=== PATIENT | female | born 1930 | race Caucasian/White ===

== ENCOUNTER 2016-08-21 03:10 | Inpatient (IN) | payer OTHER ==
[~2016-08-21] VITALS: Ht 165.1 cm; Wt 65.9 kg
[~2016-08-21 03:10] MED LIST: ALEN70TA4 PO; ASPI81TA28 PO; ATOR-22 PO; DILT-113 PO; GLC/500 PO
[2016-08-21] MEDS ORDERED: OPTIRAY 320 IV PRN (03:30)
--- NOTE | 2016-08-21 03:33 | EMERGENCY ROOM VISIT NOTE ---
History Report prepared by Kaylee: Aaliyah Hendricks Under the Supervision of: Dr. Hortensia Torre D.O. First contact with patient: 03:14 Chief Complaint: ABDOMINAL PAIN Stated Complaint: ABDOMINAL PAIN History of Present Illness The patient is an 86 year old female who presents to the Emergency Room with complaints of persistent, worsening right lower quadrant abdominal pain that began last evening. The patient states that she had slight pain when she went to bed last evening, but states that she was suddenly awoken this morning with increased pain and the need to go to the bathroom. She states she is unsure if she has a history of a cholecystectomy, and notes that she believes she has a history of an appendectomy many years ago. The patient reports that her last bowel movement was yesterday. She states that she drinks a lot of coffee and tea. The patient denies any history of diverticulitis. Per EMS the patient was given 50 mcg of Fentanyl prior to arrival and the patient states that it provided slight relief of her symptoms. Source of History: patient, EMS Onset: last evening Position: abdomen (RLQ) Timing: worsening, other (persistent) Modifying Factors (Relieving): narcotics (Fentanyl) Review of Systems See HPI for pertinent positives & negatives. A total of 10 systems reviewed and were otherwise negative. Past Medical & Surgical Medical Problems: (1) Aortic stenosis (2) Diabetes mellitus type 2 in nonobese (3) Dyslipidemia (4) History of patellar fracture (5) HTN (hypertension) (6) PSVT (paroxysmal supraventricular tachycardia) Surgical Problems: (1) H/O cataract removal with insertion of prosthetic lens (2) History of hysterectomy Family History Noncontributory secondary to age Social History Smoking Status: Former Smoker Drug Use: none Marital Status: single Housing Status: lives with family Occupation Status: unemployed Current/Historical Medications Scheduled Alendronate Sodium (Fosamax), 1 TAB PO WK Aspirin (Aspirin Ec), 81 MG PO DAILY Atorvastatin (Lipitor), 20 MG PO DAILY Diltiazem Hcl Ext Rel (Tiazac), 180 MG PO DAILY Allergies Coded Allergies: No Known Allergies (Unverified , 09/07/15) Physical Exam Vital Signs Date Time Temp Pulse Resp B/P Pulse Ox O2 Delivery O2 Flow Rate FiO2 08/21/16 05:30 89 16 97 Room Air 08/21/16 05:00 90 19 138/68 95 Room Air 08/21/16 04:30 83 20 141/67 97 Room Air 08/21/16 04:21 83 24 152/66 99 Room Air 08/21/16 03:30 36.7 86 17 164/79 98 Room Air 08/21/16 03:19 82 Physical Exam HEENT: Head - normocephalic and atraumatic Pupils are equal, round, and reactive to light. Extraocular eye muscles are intact, and sclera are anicteric. Nose - moist nasal mucosa without discharge. Mouth - dry buccal mucosa. Oropharynx is nonerythematous and there is no tonsillar exudate or edema noted. Neck: Supple; no JVD, nuchal rigidity, cervical lymphadenopathy, or auscultated bruits. Heart: Regular rate and rhythm. There is a normal S1 and S2 with no murmurs, clicks, or gallops appreciated. Lungs: Clear to auscultation bilaterally with no wheezes, rales, or rhonchi. Abdomen: Exquisitely tender in the right lower quadrant of the abdomen with rebound and guarding, consistent with an acute abdomen. Soft, nondistended, with good bowel sounds. There are no palpable pulsatile masses or hepatosplenomegaly. Extremities: No evidence of cyanosis, clubbing, or edema. There are easily palpable peripheral pulses. Skin: warm and dry with good turgor and no rashes. Medical Decision & Procedures ER Provider Diagnostic Interpretation: CT results as stated below per my review and radiologist interpretation: CT Abdomen and Pelvis: Impression: Marked wall thickening of the cecum with minimal adjacent stranding. There is an additional large diverticulum. Findings may represent focal colitis or cecal diverticulitis however malignancy is raised. Gas seen within the central liver which is favored to represent pneumobilia. Additional findings: Fibrosis with honeycombing seen within the lung bases. Gallstones without CT evidence of acute cholecystitis. The spleen, pancreas, and adrenal glands are unremarkable. The kidneys, ureters and urinary bladder are unremarkable. The uterus is surgically absent. No adnexal masses. The appendix is not visualized. No acute osseous abnormality. Radiologist: Archie Membreno MD Study read at 0796 and initial results transmitted at 3195. Laboratory Results Test 08/21/16 03:30 08/21/16 03:43 08/21/16 04:20 Immature Granulocyte % (Auto) 0.2 % White Blood Count 14.17 K/uL (4.8-10.8) Red Blood Count 3.81 M/uL (4.2-5.4) Hemoglobin 12.8 g/dL (12.0-16.0) Hematocrit 37.0 % (37-47) Mean Corpuscular Volume 97.1 fL (80-100) Mean Corpuscular Hemoglobin 33.6 pg (25-34) Mean Corpuscular Hemoglobin Concent 34.6 g/dl (32-36) Platelet Count 288 K/uL (130-400) Mean Platelet Volume 9.9 fL (7.4-10.4) Neutrophils (%) (Auto) 88.2 % Lymphocytes (%) (Auto) 5.6 % Monocytes (%) (Auto) 5.9 % Eosinophils (%) (Auto) 0.0 % Basophils (%) (Auto) 0.1 % Neutrophils # (Auto) 12.50 K/uL (1.4-6.5) Lymphocytes # (Auto) 0.79 K/uL (1.2-3.4) Monocytes # (Auto) 0.84 K/uL (0.11-0.59) Eosinophils # (Auto) 0.00 K/uL (0-0.5) Basophils # (Auto) 0.01 K/uL (0-0.2) Immature Granulocyte # (Auto) 0.03 K/uL (0.00-0.02) Prothrombin Time 10.2 SECONDS (9.0-12.0) Prothromb Time International Ratio 1.0 (0.9-1.1) Total Bilirubin 0.7 mg/dl (0.2-1) Aspartate Amino Transf (AST/SGOT) 15 U/L (15-37) Alanine Aminotransferase (ALT/SGPT) 33 U/L (12-78) Alkaline Phosphatase 83 U/L (45-117) Total Protein 7.8 gm/dl (6.4-8.2) Albumin 3.9 gm/dl (3.4-5.0) Globulin 3.9 gm/dl (2.5-4.0) Albumin/Globulin Ratio 1.0 (0.9-2) Bedside Hemoglobin 12.6 g/dl (12.0-16.0) Bedside Hematocrit 37 % (37-47) Bedside Sodium 143 mEq/L (135-144) Bedside Potassium 4.0 mEq/L (3.3-5.0) Bedside Chloride 104 mEq/L (101-112) Bedside Total CO2 21 mEq/l (24-31) Bedside Blood Urea Nitrogen 17 mg/dl (7-18) Bedside Creatinine 0.5 mg/dl (0.6-1.3) Bedside Glucose (other) 171 mg/dl (70-99) Bedside Ionized Calcium (Kaitlin) 1.15 mmol/l (1.12-1.32) Urine Color YELLOW Urine Appearance CLEAR (CLEAR) Urine pH 7.0 (4.5-7.5) Urine Specific [place] 1.041 (1.000-1.030) Urine Protein NEG (NEG) Urine Glucose (UA) 1+ (NEG) Urine Ketones TRACE (NEG) Urine Occult Blood NEG (NEG) Urine Nitrite NEG (NEG) Urine Bilirubin NEG (NEG) Urine Urobilinogen NEG (NEG) Urine Leukocyte Esterase NEG (NEG) Laboratory results per my review. Medications Administered Medications (Trade) Dose Ordered Sig/Manuel Route Start Time Stop Time Status Last Admin Dose Admin Fentanyl Citrate (Fentanyl Inj) 50 mcg NOW STAT IV 08/21/16 04:34 08/21/16 04:35 DC 08/21/16 04:42 50 MCG Piperacillin Sod/ Tazobactam Sod (Zosyn Iv) 3.375 gm NOW STAT IV 08/21/16 05:14 08/21/16 05:17 DC 08/21/16 06:30 3.375 GM Procedure The patient was treated with Fentanyl Inj 50 mcg IV, Sodium Chloride 1000 ml @ 250 mls/hr IV, Zosyn IV 3.375 gm IV. ED Course 0317: Past medical records reviewed. The patient was evaluated in room A3. A complete history and physical exam was performed. An IV lock was initiated and labs are drawn as above. 0434: Per nursing staff, the patient's pain is increasing. Ordered Fentanyl Inj 50 mcg IV. 0444: Ordered Sodium Chloride 1000 ml @ 250 mls/hr IV. 0514: Ordered Zosyn IV 3.375 gm IV. 0518: I reevaluated the patient and she is resting. I discussed all the exam findings with her and I discussed the treatment plan. She verbalized complete understanding and agreement. She will be evaluated for further treatment. 0520: I discussed the patients case with Kiel Kuo. He is going to evaluate the patient for further treatment. Medical Decision The patient is an 86 year old female who presents to the ED with right lower quadrant abdominal pain. Differential diagnosis includes appendicitis, perforated diverticulitis, pyelonephritis, cystitis, small bowel obstruction, perforated viscus, ureteral colic. Lab interpretation: White count 14.1, stable H&H, 88% neutrophils, normal renal function, glucose 171, LFTs are normal, urinalysis reveals trace ketones The patient did have mild leukocytosis. Her pain was sudden in onset. Physical exam was consistent with an episode of acute diverticulitis. The patient was treated with IV Zosyn. She was hemodynamically stable. Consults Time Called: [phone] Consulting Physician: Kiel Kuo Returned Call: [phone] I discussed the patients case with Kiel Kuo. He is going to evaluate the patient for further treatment. Impression Primary Impression: Cecal diverticulitis Scribe Attestation The scribe's documentation has been prepared under my direction and personally reviewed by me in its entirety. I confirm that the note above accurately reflects all work, treatment, procedures, and medical decision making performed by me. Departure Information Dispostion Being Evaluated By Hospitalist Referrals SherwoodBhupendra (PCP)
[2016-08-21 03:49] LABS: BASO % 0.1 %; BASO ABS # 0.01 K/uL (0-0.2); COMPLETE YES; IG% 0.2 %; LYMPH % 5.6 %; LYMPH ABS # 0.79 K/uL (1.2-3.4); MEAN CELL VOLUME 97.1 fL (80-100); MEAN CORPUSCULAR HEMOGLOBIN 33.6 pg (25-34); MEAN CORPUSCULAR HGB CONC 34.6 g/dl (32-36); MEAN PLATELET VOLUME 9.9 fL (7.4-10.4); MONO % 5.9 %; NEUT % 88.2 %; PLATELET COUNT 288 K/uL (130-400); RED BLOOD COUNT 3.81 M/uL (4.2-5.4); WHITE BLOOD COUNT 14.17 K/uL (4.8-10.8)
[2016-08-21 03:57] LABS: ISTAT CREATININE 0.5 mg/dl (0.6-1.3); ISTAT HEMOGLOBIN 12.6 g/dl (12.0-16.0); ISTAT IONIZED CALCIUM 1.15 mmol/l (1.12-1.32)
[2016-08-21 04:16] LABS: BUN/CREATININE RATIO 21.9 (10-20); CALCIUM 9.4 mg/dl (8.5-10.1); CREATININE 0.8 mg/dl (0.60-1.20)
[2016-08-21 04:29] LABS: URINE APPEARANCE CLEAR (CLEAR); URINE BILIRUBIN NEG (NEG); URINE COLOR YELLOW; URINE NITRITE NEG (NEG); URINE SPECIFIC GRAVITY 1.041 (1.000-1.030); UROBILINOGEN NEG (NEG)
[2016-08-21] MEDS ORDERED: FENTANYL CITRATE INJ 50 MCG/1 ML 2 ML VIAL IV STA (04:34)
[2016-08-21 04:38] LABS: MANUAL MICROSCOPIC REQUIRED? NO; REVIEW REQ? NO
[2016-08-21] MEDS ORDERED: SODIUM CHLORIDE 0.9% 1000ML 1,000 ML IV STA (04:44)
[2016-08-21] MEDS ORDERED: PIPERACILLIN/TAZOBACTAM 3.375 GM/100ML D5W IV STA (05:14)
[2016-08-21] MEDS ORDERED: SODIUM CHLORIDE 0.45% 1000ML 1,000 ML IV ONE (05:45)
[2016-08-21] MEDS ORDERED: ACETAMINOPHEN 325 MG TAB PO PRN (06:15)
[2016-08-21] MEDS ORDERED: KETOROLAC TROMETHAMINE 15 MG/ML VIAL IV. PRN (06:15)
[2016-08-21] MEDS ORDERED: DEXTROSE 50% 50 ML SYR IV PRN (06:15)
[2016-08-21] MEDS ORDERED: MoRPHine SULFATE 2 MG/ML CARP IV PRN (06:15)
[2016-08-21] MEDS ORDERED: GLUCOSE 40% GEL 15 GM TUBE PO PRN (06:15)
[2016-08-21] MEDS ORDERED: ONDANSETRON INJ 2 MG/ML 2 ML VIAL IV PRN (06:15)
[2016-08-21] MEDS ORDERED: GLUCAGON FOR INJ 1 MG VIAL SQ PRN (06:15)
[2016-08-21] MEDS ORDERED: TRAMADOL HCL 50 MG TAB PO PRN (06:15)
[2016-08-21] MEDS ORDERED: GLUCOSE 10 TABS/TUBE PO PRN (06:15)
[2016-08-21 06:51] LABS: PROTHROMBIN TIME (PATIENT) 10.2 SECONDS (9.0-12.0)
--- NOTE | 2016-08-21 07:14 | HISTORY & PHYSICAL EXAMINATION ---
DATE OF ADMISSION: 08/21/2016 PRIMARY CARE DOCTOR: Dr. Noelle Mullins obtained from px and records. CHIEF COMPLAINT: Right-sided abdominal pain. HISTORY OF PRESENT ILLNESS: Medical history significant for hypertension, DM2, aortic stenosis, PSVT, hyperlipidemia, past tobacco abuse. Recent confinement in August 2015 for fall right ankle fracture, Few days history of loose stools, non-bloody. No recent antibiotics. Patient saw her PCP yesterday. Told to hold metformin temporarily. Last night, patient had mild achy right-sided abdominal pain, which woke her up this morning. No nausea, no vomiting. No fever, no chills. No unusual weight loss. At the Emergency Room CAT scan initial read showed marked wall thickening of the cecum with minimal adjacent stranding, focal colitis or cecal diverticulitis. Patient received Zosyn in the ER. MEDICAL HISTORY: As above. No previous endoscopies. SURGERIES: She has had a hysterectomy, cataract surgery. HOME MEDICATIONS: Include aspirin, Fosamax, Lipitor, Tiazac. ALLERGIES: No known drug allergies. FAMILY HISTORY: Diabetes and heart disease. PERSONAL AND SOCIAL HISTORY: Past tobacco, no chronic intake of alcoholic beverages. Retired store employee. REVIEW OF SYSTEMS: As per HPI, all other ROS negative. PHYSICAL EXAMINATION: VITAL SIGNS: Blood pressure was noted to be 167/79, later 150/60; pulse rate 80, RR 20, temperature 37, sats 98 on room air. GENERAL: Noted to be slightly uncomfortable, no respiratory distress. SKIN: Normal color. HEENT: [place] palpebral conjunctivae. Dry mucosa. NECK: No JVD. Supple. CHEST: Clear to auscultation. HEART: Systolic murmur. ABDOMEN: Right lower quadrant tenderness. EXTREMITIES: No edema. no tenderness NEUROLOGIC: No gross focality. LABS: Hemoglobin was noted to be 12.8, hematocrit 37, white cells 14, platelets 288. Sodium 140, potassium 4, chloride 108, CO2 of 24, BUN 18, creatinine 0.8, glucose at 166. CT abdomen and pelvis as above UA Ketones ASSESSMENT: 1. Right-sided abdominal pain questionable cecal diverticulitis on CT initial read. 2. Hypertension, slightly elevated secondary to discomfort. 3. DM2, well controlled as of recent outpx A1c Metformin recently held due to diarrhea sx 4. Past tobacco abuse. 5. History of paroxysmal supraventricular tachycardia, as per records. PLAN: GMF clear liquids, analgesia IV Ceftriaxone, Flagyl ff official CT results GI consult RE right-sided abdominal pain, abnormal CT. ISS BG goal 140-180 DVT prophylaxis with Lovenox subQ. Full code. MTDD
--- NOTE | 2016-08-21 07:32 | DIAGNOSTIC IMAGING REPORT ---
CT OF THE ABDOMEN AND PELVIS WITH CONTRAST CLINICAL HISTORY: Right lower quadrant pain. Acute abdomen. COMPARISON STUDY: None. TECHNIQUE: Following IV administration of 93 mL of Optiray-320, axial images of the abdomen and pelvis were obtained from the lung bases to the proximal femurs. Images were reviewed in the axial, sagittal, and coronal planes. IV contrast was administered without complication. CT DOSE: 449.10 mGy.cm FINDINGS: Visualized portions of lower chest demonstrate extensive coronary artery calcification. There are subpleural reticulation with traction bronchiectasis and possible early honeycombing. A small amount of gas along the falciform ligament may reflect pneumobilia. The liver, spleen, adrenal glands, kidneys and pancreas are unremarkable. There is no evidence for a bowel obstruction. There is moderate circumferential wall thickening of the cecum with moderate adjacent infiltration. There is a 3.3 cm suspected diverticulum of the anterior wall of the cecum. The appendix is not visualized. No abscess is identified. There is no lymphadenopathy. There are gallstones within the gallbladder. There is equivocal trace free air overlying the right hepatic lobe. IMPRESSION: 1. Moderate circumferential wall thickening of the cecum with adjacent infiltration. Suspected 3.3 cm diverticulum of the anterior wall of the cecum. Cecal diverticulitis is favored although a nonspecific colitis could appear similar. In addition, a cecal malignancy is within the differential. Short-term imaging follow-up or a colonoscopy once the patient's symptoms resolve is recommended to ensure resolution. 2. Suspected minimal pneumobilia. Equivocal trace pneumoperitoneum. Electronically signed by: Swapnil Shaw M.D. 08/21/2016 7:30 AM Dictated Date/Time: 08/21/2016 7:11 AM
[2016-08-21 07:52] VITALS: BP 135/73; PULSE 91; TEMP 36.8; O2SAT 98
[2016-08-21] MEDS: INSULIN ASPART 100 UNITS/ML 3 ML PEN SC SCH ×4 (08:00→23:50)
[2016-08-21] MEDS: METRONIDAZOLE / NSS 500 MG in PREMIXED NSS 100 ML IV SCH ×3 (09:13→23:17)
[2016-08-21] MEDS: ENOXAPARIN 30 MG/0.3 ML SYR SQ SCH (09:15)
[2016-08-21] MEDS: CEFTRIAXONE SOD INJ 1 GM in DEXTROSE 5% ADD-VANTAGE 50ML 50 ML IV SCH (10:41)
[2016-08-21] MEDS: ATORVASTATIN 20 MG TAB PO SCH (11:58)
[2016-08-21] MEDS: ASPIRIN 81 MG ECTAB PO SCH (11:58)
[2016-08-21] MEDS: DILTIAZEM HCL (TIAzac) 180 MG CAPCR PO SCH (11:59)
[2016-08-21] MEDS ORDERED: NURSING DECISION MEDICATION ORDER SCH (12:00)
--- NOTE | 2016-08-21 14:30 | Gastrointestinal Consultation ---
Gastrointestinal Consultation Date of Consultation: August 21, 2016 Attending Physician: Melonie Webber Consulting Physician: Edenilson Forte Reason for Consultation: Abd pain History of Present Illness Patient is a 86 year old female w PMHx of HTN, DM II, aortic stenosis, PSVT, hyperlipidemia, hx of tobacco abuse who presented to ED w c/o R sided abd pain. She reports 2 days ago had loose stools but had since resolved. Denies any fever , chills, n/v. Denies any recent antibx use. Labs showed leukocytosis w WBC 14K , H/H stable, CMP unremarkable including normal LFTs. She had CT abd/pelvis which showed possible pneumobilia near falciform ligament, cecal thickening ? diverticulitis or focal colitis. She denies any heavy lifting or straineous activity recently. She had been admitted, started on Ceftriaxone, Flagyl antibx. This AM had CL breakfast which showed tolerated. Still c/o some RUQ abd pain but improved. Past Medical/Surgical History Medical Problems: (1) Cecal diverticulitis Status: Acute Past Medical History: See HPI above Past Surgical History: Hysterectomy Cataract Surgery Family History Noncontributory secondary to age DM Heart disease Social History Smoking Status: Former Smoker Alcohol Use: none Drug Use: none Marital Status: single Housing Status: lives with family Occupation Status: unemployed Allergies Coded Allergies: No Known Allergies (Unverified , 09/07/15) Current Medications Home Meds and Scripts Medications Dose Route/Sig Max Daily Dose Days Date Category Fosamax (Alendronate Sodium) 70 Mg Tab 1 Tab PO WK 28 09/07/15 Reported Aspirin Ec (Aspirin) 81 Mg Tab 81 Mg PO DAILY 09/07/15 Reported Tiazac (Diltiazem HCl) 180 Mg Capcr 180 Mg PO DAILY 09/07/15 Reported Lipitor (Atorvastatin Calcium) 20 Mg Tab 20 Mg PO DAILY 09/07/15 Reported Review of Systems Constitutional: No chills, No fever Respiratory: No cough, No shortness of breath Cardiac: No chest pain, No edema Abdomen: + pain (R sided), No diarrhea, No nausea, No vomiting Physical Exam Date Time Temp Pulse Resp B/P Pulse Ox O2 Delivery O2 Flow Rate FiO2 08/21/16 07:52 36.8 91 15 135/73 98 08/21/16 07:00 96 18 141/71 98 Room Air 08/21/16 06:30 94 20 141/97 98 Room Air 08/21/16 06:00 89 24 95 Room Air 08/21/16 05:49 85 08/21/16 05:30 89 16 97 Room Air 08/21/16 05:00 90 19 138/68 95 Room Air 08/21/16 04:30 83 20 141/67 97 Room Air 08/21/16 04:21 83 24 152/66 99 Room Air 08/21/16 03:30 36.7 86 17 164/79 98 Room Air 08/21/16 03:19 82 General Appearance: WD/WN, no apparent distress Eyes: normal inspection, PERRL, EOMI Neck: supple, thyroid normal, trachea midline Respiratory/Chest: normal breath sounds, no respiratory distress, no accessory muscle use Cardiovascular: regular rate, rhythm, no gallop, no murmur Abdomen: soft, + tenderness (Tender to palpation diffusely except on LUQ and periumbilical areas ) Extremities: normal inspection, no pedal edema, no calf tenderness Neurologic/Psych: alert, normal mood/affect, oriented x 3 Skin: normal color, no jaundice, no rash Laboratory Results Last 24 Hours Test 08/21/16 03:30 08/21/16 03:43 08/21/16 04:20 08/21/16 08:50 White Blood Count 14.17 K/uL Red Blood Count 3.81 M/uL Hemoglobin 12.8 g/dL Hematocrit 37.0 % Mean Corpuscular Volume 97.1 fL Mean Corpuscular Hemoglobin 33.6 pg Mean Corpuscular Hemoglobin Concent 34.6 g/dl Platelet Count 288 K/uL Mean Platelet Volume 9.9 fL Neutrophils (%) (Auto) 88.2 % Lymphocytes (%) (Auto) 5.6 % Monocytes (%) (Auto) 5.9 % Eosinophils (%) (Auto) 0.0 % Basophils (%) (Auto) 0.1 % Neutrophils # (Auto) 12.50 K/uL Lymphocytes # (Auto) 0.79 K/uL Monocytes # (Auto) 0.84 K/uL Eosinophils # (Auto) 0.00 K/uL Basophils # (Auto) 0.01 K/uL RDW Standard Deviation 47.0 fL RDW Coefficient of Variation 13.3 % Immature Granulocyte % (Auto) 0.2 % Immature Granulocyte # (Auto) 0.03 K/uL Prothrombin Time 10.2 SECONDS Prothromb Time International Ratio 1.0 Sodium Level 143 mmol/L Potassium Level 4.0 mmol/L Chloride Level 108 mmol/L Carbon Dioxide Level 24 mmol/L Anion Gap 11.0 mmol/L 22.0 mmol/L Blood Urea Nitrogen 18 mg/dl Creatinine 0.80 mg/dl Est Creatinine Clear Calc Drug Dose 43.7 ml/min Estimated GFR () 76.3 Estimated GFR (Non- 65.8 BUN/Creatinine Ratio 21.9 Random Glucose 166 mg/dl Calcium Level 9.4 mg/dl Magnesium Level 2.0 mg/dl Total Bilirubin 0.7 mg/dl Aspartate Amino Transf (AST/SGOT) 15 U/L Alanine Aminotransferase (ALT/SGPT) 33 U/L Alkaline Phosphatase 83 U/L Total Protein 7.8 gm/dl Albumin 3.9 gm/dl Globulin 3.9 gm/dl Albumin/Globulin Ratio 1.0 Bedside Hemoglobin 12.6 g/dl Bedside Hematocrit 37 % Bedside Sodium 143 mEq/L Bedside Potassium 4.0 mEq/L Bedside Chloride 104 mEq/L Bedside Total CO2 21 mEq/l Bedside Blood Urea Nitrogen 17 mg/dl Bedside Creatinine 0.5 mg/dl Bedside Glucose (other) 171 mg/dl Bedside Ionized Calcium (Kaitlin) 1.15 mmol/l Urine Color YELLOW Urine Appearance CLEAR Urine pH 7.0 Urine Specific [place] 1.041 Urine Protein NEG Urine Glucose (UA) 1+ Urine Ketones TRACE Urine Occult Blood NEG Urine Nitrite NEG Urine Bilirubin NEG Urine Urobilinogen NEG Urine Leukocyte Esterase NEG Bedside Glucose 180 mg/dl Test 08/21/16 11:56 Bedside Glucose 143 mg/dl Impression Patient is a 86 year old female admitted w abd pain. CT scan showed ? tear falciform ligament w pneumobilia and possible cecal focal colitis vs. diverticulitis. Plan - Surgery consult; keep NPO till evaluated by Surgery - Continue current antibx - Will need outpt colonoscopy in 4 week's time. I have seen, examined, and agree with the plan as outlined by CASTILLO Cordero -cecal diverticulitis with small spontaneous free air -doing well clinically -cont abx -pending uneventful course, plan for colonoscopy in about 4-6 wks to ensure no malignancy -surgery consult
[2016-08-21 14:59] VITALS: BP 114/66; PULSE 90; TEMP 36.6; O2SAT 95
[2016-08-21 16:02] VITALS: Ht 165.1 cm; Wt 65.9 kg
[2016-08-21] MEDS: SODIUM CHLORIDE 0.9% 1000ML 1,000 ML IV SCH (20:26)
[2016-08-21 22:57] VITALS: BP 113/63; PULSE 78; TEMP 36.8; O2SAT 95
--- NOTE | 2016-08-22 00:52 | SURGICAL CONSULTATION ---
DATE OF CONSULTATION: 08/21/2016 I have been asked by Dr. Forte to see this 86-year-old female who presented to the Emergency Room with abdominal pain that had been going on for 4-5 days. The pain began gradually but increased in intensity. It was located mostly on the right side of her abdomen, in the lower quadrant more than the upper quadrant. It was not associated with vomiting. She had some nausea. She did not have a fever. She has been moving her bowels. There is no melena or hematochezia. She denies dysuria and hematuria. She underwent a CT scan of the abdomen and pelvis that showed moderate circumferential wall thickening of the cecum with adjacent infiltration. There was a suspected 3.3 cm diverticulum on the anterior wall of the cecum and the favored diagnosis from my CT criteria was cecal diverticulitis. The appendix was not visualized. Suspected minimal pneumobilia and equivocal trace pneumoperitoneum. At the present time, she denies any abdominal pain. PAST MEDICAL HISTORY: Includes hypertension, diabetes mellitus type 2, aortic stenosis, paroxysmal supraventricular tachycardia, hyperlipidemia. PAST SURGICAL HISTORY: KODY-BSO. Her appendix was removed during that procedure. She has had bilateral cataracts and a T\T\A. MEDICATIONS: Fosamax, Lipitor, Tiazac, and aspirin. ALLERGIES: None. PHYSICAL EXAMINATION: GENERAL: Reveals a well-developed, well-nourished female who appears resting comfortably and in no acute distress. VITAL SIGNS: Blood pressure 114/66, heart rate 90, respirations 16, temperature 36.6, pulse oximetry is 95% on room air. HEENT: Reveals the sclerae to be anicteric. Mucous membranes are moist. NECK: Supple, with no adenopathy. BACK: Has no CVA tenderness. LUNGS: Clear. HEART: Regular. ABDOMEN: Has normoactive bowel sounds. It is soft, nondistended with tenderness on the right side, particularly in the right lower quadrant with fullness but no particular mass. EXTREMITIES: Reveal no edema. LABORATORY DATA: WBC 14.17, H\T\H 12.8 and 37.0, platelet count 288,000. Sodium 143, potassium 4.0, chloride 104, CO2 of 21, BUN 17, creatinine 0.5, glucose 171, INR 1.0. CT as per HPI. ASSESSMENT AND PLAN: This appears to be either cecal diverticulitis or possibly a colitis. She does not have an appendix. There is minimal free air but I doubt perforation. She has no evidence of diffuse peritonitis. Her pain is decreasing. I agree with conservative management with antibiotics. If do not think surgical intervention is necessary at this time. Thank you for allowing me to see this patient and participate in her care.
[2016-08-22] MEDS: SODIUM CHLORIDE 0.9% 1000ML 1,000 ML IV SCH ×2 (04:27→14:23)
[2016-08-22] MEDS: INSULIN ASPART 100 UNITS/ML 3 ML PEN SC SCH ×3 (05:54→18:00)
[2016-08-22 06:08] LABS: HEMATOCRIT 35.8 % (37-47); MEAN CELL VOLUME 98.6 fL (80-100); MEAN CORPUSCULAR HEMOGLOBIN 32.5 pg (25-34); MEAN PLATELET VOLUME 9.8 fL (7.4-10.4); PLATELET COUNT 234 K/uL (130-400); RED BLOOD COUNT 3.63 M/uL (4.2-5.4); WHITE BLOOD COUNT 14.27 K/uL (4.8-10.8)
[2016-08-22 06:44] LABS: BUN/CREATININE RATIO 21.2 (10-20); CALCIUM 8.2 mg/dl (8.5-10.1); CREATININE 0.5 mg/dl (0.60-1.20); POTASSIUM 3.4 mmol/L (3.5-5.1)
[2016-08-22 07:47] VITALS: BP 128/70; PULSE 88; TEMP 36.7; O2SAT 97
[2016-08-22 08:03] VITALS: O2SAT 97
--- NOTE | 2016-08-22 09:06 | Gastroenterology Progress Note ---
Progress Note Date of Service: August 22, 2016 Subjective Pt evaluation today including: conversation w/ patient, physical exam The patient presented yesterday with evidence of abdominal pain and probable cecal diverticulitis with evidence of a microperforation. She notes that her abdominal pain is somewhat better today. Review of Systems Constitutional: No fatigue, No fever, No sweats Respiratory: No cough, No dyspnea at rest, No wheezing Cardiac: No PND, No chest pain, No palpitations Medications Current Inpatient Medications Medications (Trade) Dose Ordered Sig/Manuel Route Start Time Stop Time Status Last Admin Dose Admin Ioversol (Optiray 320) 100 ml UD PRN IV 08/21/16 03:30 08/25/16 03:29 Enoxaparin Sodium (Lovenox Inj) 30 mg DAILY SQ 08/21/16 09:00 09/20/16 08:59 Future Hold 08/21/16 09:15 30 MG Acetaminophen (Tylenol Tab) 650 mg Q4H PRN PO 08/21/16 06:15 09/20/16 06:14 Glucose (Glucose 40% Gel) 15-30 GRAMS 15 GRAMS... UD PRN PO 08/21/16 06:15 09/20/16 06:14 Glucose (Glucose Chew Tab) 4-8 Tablets 4 Tabl... UD PRN PO 08/21/16 06:15 09/20/16 06:14 Dextrose (Dextrose 50% 50ML Syringe) 25-50ML OF 50% DW IV FOR... UD PRN IV 08/21/16 06:15 09/20/16 06:14 Glucagon 1 mg 1 mg UD PRN SQ 08/21/16 06:15 09/20/16 06:14 Ceftriaxone Sodium 1 gm/ Dextrose 50 ml @ 100 mls/hr DAILY@0800 IV 08/21/16 08:00 08/31/16 07:59 08/21/16 10:41 100 MLS/HR Metronidazole/Prmx (Flagyl / Nss/ Premixed Nss) 100 ml @ 100 mls/hr Q8H IV 08/21/16 08:00 08/31/16 07:59 08/21/16 23:17 100 MLS/HR Ondansetron HCl (Zofran Inj) 4 mg Q6H PRN IV 08/21/16 06:15 09/20/16 06:14 Tramadol HCl (Ultram Tab) 25 mg Q6H PRN PO 08/21/16 06:15 09/20/16 06:14 08/21/16 20:35 25 MG Ketorolac Tromethamine (Toradol Inj) 15 mg Q6H PRN IV. 08/21/16 06:15 08/26/16 06:14 Morphine Sulfate (MoRPHine SULFATE INJ) 2 mg Q3H PRN IV 08/21/16 06:15 09/04/16 06:14 Aspirin (Ecotrin Tab) 81 mg DAILY PO 08/21/16 09:00 09/20/16 08:59 Future Hold 08/21/16 11:58 81 MG Atorvastatin Calcium (Lipitor Tab) 20 mg DAILY PO 08/21/16 09:00 09/20/16 08:59 Future Hold 08/21/16 11:58 20 MG Diltiazem HCl (TIAzac CAP) 180 mg DAILY PO 08/21/16 09:00 09/20/16 08:59 Future Hold 08/21/16 11:59 180 MG Insulin Aspart SLIDING SCALE If C... Q6 SC 08/21/16 18:00 09/20/16 17:59 Sodium Chloride (Nss 1000ml) 1,000 ml @ 100 mls/hr Q10H IV 08/21/16 18:30 09/20/16 18:29 08/22/16 04:27 100 MLS/HR Objective Vital Signs Date Time Temp Pulse Resp B/P Pulse Ox O2 Delivery O2 Flow Rate FiO2 08/22/16 08:03 97 Room Air 08/22/16 07:47 36.7 88 18 128/70 97 Room Air 08/21/16 23:20 Room Air 08/21/16 22:57 36.8 78 16 113/63 95 Room Air 08/21/16 16:02 Room Air 08/21/16 15:30 Room Air 08/21/16 14:59 36.6 90 16 114/66 95 Room Air Physical Exam General Appearance: no apparent distress Neck: no JVD Respiratory/Chest: lungs clear Cardiovascular: + systolic murmur Abdomen: soft, + tenderness (right-sided abdominal tenderness without peritoneal signs) Skin: no jaundice Laboratory Results Last 24 Hours Test 08/21/16 11:56 08/21/16 18:12 08/21/16 23:44 08/22/16 05:12 Bedside Glucose 143 mg/dl 133 mg/dl 150 mg/dl White Blood Count 14.27 K/uL Red Blood Count 3.63 M/uL Hemoglobin 11.8 g/dL Hematocrit 35.8 % Mean Corpuscular Volume 98.6 fL Mean Corpuscular Hemoglobin 32.5 pg Mean Corpuscular Hemoglobin Concent 33.0 g/dl RDW Standard Deviation 49.4 fL RDW Coefficient of Variation 13.7 % Platelet Count 234 K/uL Mean Platelet Volume 9.8 fL Sodium Level 140 mmol/L Potassium Level 3.4 mmol/L Chloride Level 105 mmol/L Carbon Dioxide Level 27 mmol/L Anion Gap 8.0 mmol/L Blood Urea Nitrogen 11 mg/dl Creatinine 0.50 mg/dl Est Creatinine Clear Calc Drug Dose 69.3 ml/min Estimated GFR () 100.2 Estimated GFR (Non- 86.4 BUN/Creatinine Ratio 21.2 Random Glucose 121 mg/dl Calcium Level 8.2 mg/dl Magnesium Level 2.0 mg/dl Test 08/22/16 05:52 Bedside Glucose 124 mg/dl Assessment and Plan Patient admitted with imaging suggestive of cecal diverticulitis. She does seem to be slowly improving at this point in time. I will recommend continuation of antibiotics for likely a two-week course. She will need a colonoscopy in approximately 6 weeks for further evaluation. Recommendations Advance diet as tolerated from my perspective Consider use of MiraLAX 17 g per day Continue broad-spectrum antibiotics for 2 weeks Outpatient colonoscopy in 6 weeks Please call with any questions or concerns, GI to sign off for the present time
[2016-08-22] MEDS: METRONIDAZOLE / NSS 500 MG in PREMIXED NSS 100 ML IV SCH ×2 (09:21→16:22)
[2016-08-22 11:30] VITALS: BP 96/60; PULSE 81; TEMP 36.8; O2SAT 96
--- NOTE | 2016-08-22 11:55 | Surgery Progress Note ---
Surgery Progress Note Date of Service August 22, 2016. Subjective + flatus, No nausea, No vomiting Has a small amount of pain today Objective Vital Signs: Date Time Temp Pulse Resp B/P Pulse Ox O2 Delivery O2 Flow Rate FiO2 08/22/16 11:30 36.8 81 16 96/60 96 Room Air 08/22/16 09:28 Room Air 08/22/16 08:03 97 Room Air 08/22/16 07:47 36.7 88 18 128/70 97 Room Air 08/21/16 23:20 Room Air 08/21/16 22:57 36.8 78 16 113/63 95 Room Air 08/21/16 16:02 Room Air 08/21/16 15:30 Room Air 08/21/16 14:59 36.6 90 16 114/66 95 Room Air Abdomen: non distended, soft, + tenderness (right side of abdomen unchange, no diffuse tenderness) Laboratory Results: Results Past 24 Hours Test 08/21/16 11:56 08/21/16 18:12 08/21/16 23:44 08/22/16 05:12 Range/Units Bedside Glucose 143 133 150 70-90 mg/dl White Blood Count 14.27 4.8-10.8 K/uL Red Blood Count 3.63 4.2-5.4 M/uL Hemoglobin 11.8 12.0-16.0 g/dL Hematocrit 35.8 37-47 % Mean Corpuscular Volume 98.6 80-100 fL Mean Corpuscular Hemoglobin 32.5 25-34 pg Mean Corpuscular Hemoglobin Concent 33.0 32-36 g/dl RDW Standard Deviation 49.4 36.4-46.3 fL RDW Coefficient of Variation 13.7 11.5-14.5 % Platelet Count 234 130-400 K/uL Mean Platelet Volume 9.8 7.4-10.4 fL Sodium Level 140 136-145 mmol/L Potassium Level 3.4 3.5-5.1 mmol/L Chloride Level 105 98-107 mmol/L Carbon Dioxide Level 27 21-32 mmol/L Anion Gap 8.0 3-11 mmol/L Blood Urea Nitrogen 11 7-18 mg/dl Creatinine 0.50 0.60-1.20 mg/dl Est Creatinine Clear Calc Drug Dose 69.3 ml/min Estimated GFR () 100.2 Estimated GFR (Non- 86.4 BUN/Creatinine Ratio 21.2 10-20 Random Glucose 121 70-99 mg/dl Calcium Level 8.2 8.5-10.1 mg/dl Magnesium Level 2.0 1.8-2.4 mg/dl Test 08/22/16 05:52 Range/Units Bedside Glucose 124 70-90 mg/dl Assessment & Plan Probable cecal diverticulitis No diffuse peritonitis Continue IV antibiotics and conservative measures
[2016-08-22] MEDS: CEFTRIAXONE SOD INJ 1 GM in DEXTROSE 5% ADD-VANTAGE 50ML 50 ML IV SCH (14:22)
[2016-08-22 15:18] VITALS: BP 126/71; PULSE 73; TEMP 37; O2SAT 97
--- NOTE | 2016-08-22 16:54 | Progress Note ---
Internal Med Progress Note Date of Service: August 22, 2016. Provider Documentation: SUBJECTIVE: abdominal pain has improved no nausea no fever or chills OBJECTIVE: Vital Signs-as noted below Exam: General-elderly female , pleasant ,no sign of distress Lungs-CTA Heart-regular S1/s2 Abdomen-+ RLQ tenderness Extremities-no rash or deformity Neuro-AAO x3, no focal deficit Lab data as noted below. ASSESSMENT & PLAN: ACUTE CECAL DIVERTICULITIS -presented with rt lower quadrant pain Ct abdomen /pelvis : 3.3 cm diverticulum in the anterior wall of the cecum , moderate circumferential wall thickening of the wall of the cecum with adjacent infiltration -cecal diverticulitis -with microperforation causing minimum pneumobilia /equivocal trace pneumoperitoneum -no evidence of sepsis -appreciate input from Surgery and GI -no indication for surgical intervention pt should recover with conservative approach -continue bowel rest , IV fluid , IV abx -on Rocephin /Flagyl -will need 2 weeks of ABx on discharge -out pt colonoscopy in 6 weeks after resolution of acute infection DVT PROPHYLAXIS sub q Lovenox OOB as tolerated DISPOSITION lives at home with her sister was independent on her ADL's , uses walker Discharge home when medically stable Medicine follow up with Dr Joe Drake will need GI follow up in [address] Stevenson for out patient colonoscopy Vital Signs: Date Time Temp Pulse Resp B/P Pulse Ox O2 Delivery O2 Flow Rate FiO2 08/23/16 07:50 Room Air 08/23/16 06:59 36.7 66 20 137/73 96 Room Air 08/22/16 23:59 Room Air 08/22/16 22:48 36.8 81 18 130/67 96 Room Air 08/22/16 16:00 Room Air 08/22/16 15:18 37.0 73 14 126/71 97 Room Air 08/22/16 11:30 36.8 81 16 96/60 96 Room Air Lab Results: Results Past 24 Hours Test 08/22/16 11:50 08/22/16 18:03 08/23/16 05:23 08/23/16 06:07 Range/Units Bedside Glucose 105 106 104 70-90 mg/dl White Blood Count 10.90 4.8-10.8 K/uL Red Blood Count 3.60 4.2-5.4 M/uL Hemoglobin 11.8 12.0-16.0 g/dL Hematocrit 35.3 37-47 % Mean Corpuscular Volume 98.1 80-100 fL Mean Corpuscular Hemoglobin 32.8 25-34 pg Mean Corpuscular Hemoglobin Concent 33.4 32-36 g/dl RDW Standard Deviation 48.2 36.4-46.3 fL RDW Coefficient of Variation 13.4 11.5-14.5 % Platelet Count 202 130-400 K/uL Mean Platelet Volume 9.9 7.4-10.4 fL Sodium Level 142 136-145 mmol/L Potassium Level 3.2 3.5-5.1 mmol/L Chloride Level 110 98-107 mmol/L Carbon Dioxide Level 24 21-32 mmol/L Anion Gap 8.0 3-11 mmol/L Blood Urea Nitrogen 11 7-18 mg/dl Creatinine 0.40 0.60-1.20 mg/dl Est Creatinine Clear Calc Drug Dose 87.5 ml/min Estimated GFR () 107.8 Estimated GFR (Non- 93.0 BUN/Creatinine Ratio 28.5 10-20 Random Glucose 103 70-99 mg/dl Calcium Level 7.7 8.5-10.1 mg/dl Magnesium Level 2.1 1.8-2.4 mg/dl Microbiology Results 08/23/16 C.difficile Toxin B Gene (PCR), Percy Batch Pending
[2016-08-22 22:48] VITALS: BP 130/67; PULSE 81; TEMP 36.8; O2SAT 96
[2016-08-23] MEDS: METRONIDAZOLE / NSS 500 MG in PREMIXED NSS 100 ML IV SCH ×3 (00:15→15:56)
[2016-08-23] MEDS: INSULIN ASPART 100 UNITS/ML 3 ML PEN SC SCH ×4 (00:53→18:00)
[2016-08-23] MEDS: SODIUM CHLORIDE 0.9% 1000ML 1,000 ML IV SCH ×2 (00:58→10:00)
[2016-08-23 05:56] LABS: HEMATOCRIT 35.3 % (37-47); MEAN CELL VOLUME 98.1 fL (80-100); MEAN CORPUSCULAR HEMOGLOBIN 32.8 pg (25-34); MEAN CORPUSCULAR HGB CONC 33.4 g/dl (32-36); MEAN PLATELET VOLUME 9.9 fL (7.4-10.4); PLATELET COUNT 202 K/uL (130-400)
[2016-08-23 06:28] LABS: BUN/CREATININE RATIO 28.5 (10-20); CALCIUM 7.7 mg/dl (8.5-10.1); CREATININE 0.4 mg/dl (0.60-1.20); MAGNESIUM 2.1 mg/dl (1.8-2.4); POTASSIUM 3.2 mmol/L (3.5-5.1)
[2016-08-23 06:59] VITALS: BP 137/73; PULSE 66; TEMP 36.7; O2SAT 96
[2016-08-23] MEDS: CEFTRIAXONE SOD INJ 1 GM in DEXTROSE 5% ADD-VANTAGE 50ML 50 ML IV SCH (07:49)
[2016-08-23] MEDS: POTASSIUM CHLR 10 MEQ / WTR 10 MEQ in PREMIXED WATER 100 ML IV SCH ×2 (10:48→13:14)
[2016-08-23] MEDS: CIPROFLOXACIN / D5W 400 MG in PREMIXED IN D5W 200 ML IV SCH ×2 (10:49→21:58)
[2016-08-23] MEDS ORDERED: POLYETHYLENE (MIRALAX) 17 GM PACK PO SCH (11:00)
[2016-08-23 12:49] VITALS: BP 143/81; PULSE 76; O2SAT 99
[2016-08-23 12:50] VITALS: PULSE 84
[2016-08-23 13:04] VITALS: BP 136/74; PULSE 74; O2SAT 99
[2016-08-23] MEDS ORDERED: NURSING VERBAL MED ORDER ONE (13:30)
--- NOTE | 2016-08-23 14:03 | DIAGNOSTIC IMAGING REPORT ---
CHEST ONE VIEW PORTABLE CLINICAL HISTORY: sob COMPARISON STUDY: No previous studies for comparison. FINDINGS: The heart is normal in size. There are bibasilar opacities likely atelectatic. There is no failure. There is no lobar consolidation. There is minor blunting of the lateral costophrenic angles. Underlying interstitial lung disease is suspected.[ IMPRESSION: 1. Bibasilar opacities likely atelectatic 2. Suspected underlying interstitial lung disease 3. Blunting of the lateral costophrenic angles Electronically signed by: Aubrey Galicia M.D. 08/23/2016 2:01 PM Dictated Date/Time: 08/23/2016 2:00 PM
[2016-08-23 14:59] VITALS: BP 151/69; PULSE 72; TEMP 36.9; O2SAT 97
--- NOTE | 2016-08-23 16:52 | Surgery Progress Note ---
Surgery Progress Note Date of Service August 23, 2016. Subjective Less pain Objective Vital Signs: Date Time Temp Pulse Resp B/P Pulse Ox O2 Delivery O2 Flow Rate FiO2 08/23/16 14:59 36.9 72 19 151/69 97 Room Air 08/23/16 13:04 74 136/74 99 Room Air 08/23/16 13:04 99 Room Air 08/23/16 12:50 84 08/23/16 12:49 76 20 143/81 99 Room Air 08/23/16 07:50 Room Air 08/23/16 06:59 36.7 66 20 137/73 96 Room Air 08/22/16 23:59 Room Air 08/22/16 22:48 36.8 81 18 130/67 96 Room Air Abdomen: non distended, soft, + tenderness (less tender today) Laboratory Results: Results Past 24 Hours Test 08/22/16 18:03 08/23/16 05:23 08/23/16 06:07 08/23/16 12:03 Range/Units Bedside Glucose 106 104 124 70-90 mg/dl White Blood Count 10.90 4.8-10.8 K/uL Red Blood Count 3.60 4.2-5.4 M/uL Hemoglobin 11.8 12.0-16.0 g/dL Hematocrit 35.3 37-47 % Mean Corpuscular Volume 98.1 80-100 fL Mean Corpuscular Hemoglobin 32.8 25-34 pg Mean Corpuscular Hemoglobin Concent 33.4 32-36 g/dl RDW Standard Deviation 48.2 36.4-46.3 fL RDW Coefficient of Variation 13.4 11.5-14.5 % Platelet Count 202 130-400 K/uL Mean Platelet Volume 9.9 7.4-10.4 fL Sodium Level 142 136-145 mmol/L Potassium Level 3.2 3.5-5.1 mmol/L Chloride Level 110 98-107 mmol/L Carbon Dioxide Level 24 21-32 mmol/L Anion Gap 8.0 3-11 mmol/L Blood Urea Nitrogen 11 7-18 mg/dl Creatinine 0.40 0.60-1.20 mg/dl Est Creatinine Clear Calc Drug Dose 87.5 ml/min Estimated GFR () 107.8 Estimated GFR (Non- 93.0 BUN/Creatinine Ratio 28.5 10-20 Random Glucose 103 70-99 mg/dl Calcium Level 7.7 8.5-10.1 mg/dl Magnesium Level 2.1 1.8-2.4 mg/dl Microbiology Results 08/23/16 C.difficile Toxin B Gene (PCR) - Final, Complete No C. difficile toxin B gene detected Assessment & Plan Probable cecal diverticulitis No diffuse peritonitis Continue IV antibiotics and conservative measures
--- NOTE | 2016-08-23 19:31 | Progress Note ---
Internal Med Progress Note Date of Service: August 23, 2016. Provider Documentation: SUBJECTIVE: says feels fine, turpentine distiller on rt lower quadrant , pain improved no fever or chills very hungry , asking when when she can eat on sips of water and ice chips no nausea had bowel movement today OBJECTIVE: Vital Signs-as noted below Exam: General-elderly female , pleasant ,no sign of distress Lungs-CTA Heart-regular S1/s2 Abdomen-+ RLQ tenderness Extremities-no rash or deformity Neuro-AAO x3, no focal deficit Lab data as noted below. ASSESSMENT & PLAN: ACUTE CECAL DIVERTICULITIS -presented with rt lower quadrant pain Ct abdomen /pelvis : 3.3 cm diverticulum in the anterior wall of the cecum , moderate circumferential wall thickening of the wall of the cecum with adjacent infiltration -cecal diverticulitis -with microperforation causing minimum pneumobilia /equivocal trace pneumoperitoneum -no evidence of sepsis -appreciate input from Surgery and GI -no indication for surgical intervention pt should recover with conservative approach -continue bowel rest , IV fluid , IV abx -on Rocephin /Flagyl -Rocephin changed to IV Ciprofloxacin -can be changed to PO Ciprofloxacin on discharge -will need 2 weeks of ABx on discharge -out pt colonoscopy in 6 weeks after resolution of acute infection DVT PROPHYLAXIS sub q Lovenox OOB as tolerated DISPOSITION lives at home with her sister was independent on her ADL's , uses walker PT/OT eval requested Discharge home when medically stable Medicine follow up with Dr Joe Drake will need GI follow up in [address] Stevenson for out patient colonoscopy Vital Signs: Date Time Temp Pulse Resp B/P Pulse Ox O2 Delivery O2 Flow Rate FiO2 08/24/16 06:56 36.6 80 18 122/74 98 Room Air 08/24/16 03:15 36.8 78 24 148/76 98 Room Air 08/24/16 00:34 Room Air 08/23/16 22:45 36.7 77 20 155/80 98 Room Air 08/23/16 16:20 Room Air 08/23/16 14:59 36.9 72 19 151/69 97 Room Air 08/23/16 13:04 74 136/74 99 Room Air 08/23/16 13:04 99 Room Air 08/23/16 12:50 84 08/23/16 12:49 76 20 143/81 99 Room Air 08/23/16 07:50 Room Air Lab Results: Results Past 24 Hours Test 08/23/16 12:03 08/23/16 18:07 08/24/16 05:28 Range/Units Bedside Glucose 124 110 70-90 mg/dl White Blood Count 11.03 4.8-10.8 K/uL Red Blood Count 3.79 4.2-5.4 M/uL Hemoglobin 12.3 12.0-16.0 g/dL Hematocrit 36.5 37-47 % Mean Corpuscular Volume 96.3 80-100 fL Mean Corpuscular Hemoglobin 32.5 25-34 pg Mean Corpuscular Hemoglobin Concent 33.7 32-36 g/dl RDW Standard Deviation 46.4 36.4-46.3 fL RDW Coefficient of Variation 13.3 11.5-14.5 % Platelet Count 255 130-400 K/uL Mean Platelet Volume 9.7 7.4-10.4 fL Sodium Level 140 136-145 mmol/L Potassium Level 3.2 3.5-5.1 mmol/L Chloride Level 108 98-107 mmol/L Carbon Dioxide Level 22 21-32 mmol/L Anion Gap 10.0 3-11 mmol/L Blood Urea Nitrogen 8 7-18 mg/dl Creatinine 0.39 0.60-1.20 mg/dl Est Creatinine Clear Calc Drug Dose 89.7 ml/min Estimated GFR () 108.7 Estimated GFR (Non- 93.8 BUN/Creatinine Ratio 19.7 10-20 Random Glucose 108 70-99 mg/dl Calcium Level 7.7 8.5-10.1 mg/dl Magnesium Level 2.0 1.8-2.4 mg/dl
[2016-08-23 22:45] VITALS: BP 155/80; PULSE 77; TEMP 36.7; O2SAT 98
[2016-08-23] MEDS ORDERED: NURSING DECISION MEDICATION ORDER SCH (23:30)
[2016-08-24] MEDS: METRONIDAZOLE / NSS 500 MG in PREMIXED NSS 100 ML IV SCH ×4 (02:01→23:23)
[2016-08-24 03:15] VITALS: BP 148/76; PULSE 78; TEMP 36.8; O2SAT 98
[2016-08-24 05:51] LABS: HEMATOCRIT 36.5 % (37-47); MEAN CELL VOLUME 96.3 fL (80-100); MEAN CORPUSCULAR HEMOGLOBIN 32.5 pg (25-34); MEAN CORPUSCULAR HGB CONC 33.7 g/dl (32-36); MEAN PLATELET VOLUME 9.7 fL (7.4-10.4); PLATELET COUNT 255 K/uL (130-400); RED BLOOD COUNT 3.79 M/uL (4.2-5.4); WHITE BLOOD COUNT 11.03 K/uL (4.8-10.8)
[2016-08-24 06:17] LABS: BUN/CREATININE RATIO 19.7 (10-20); CALCIUM 7.7 mg/dl (8.5-10.1); CREATININE 0.39 mg/dl (0.60-1.20); POTASSIUM 3.2 mmol/L (3.5-5.1)
[2016-08-24 06:56] VITALS: BP 122/74; PULSE 80; TEMP 36.6; O2SAT 98
[2016-08-24] MEDS: INSULIN ASPART 100 UNITS/ML 3 ML PEN SC SCH ×4 (08:00→21:00)
[2016-08-24] MEDS: POTASSIUM CHLR 10 MEQ / WTR 10 MEQ in PREMIXED WATER 100 ML IV SCH ×2 (08:54→10:05)
[2016-08-24] MEDS: CIPROFLOXACIN / D5W 400 MG in PREMIXED IN D5W 200 ML IV SCH ×2 (08:55→21:29)
[2016-08-24] MEDS ORDERED: POLYETHYLENE (MIRALAX) 17 GM PACK PO PRN (09:00)
--- NOTE | 2016-08-24 10:46 | Surgery Progress Note ---
Surgery Progress Note Date of Service August 24, 2016. Subjective + bowel movement, + diet (tolerated clear liquids), + flatus, No nausea, No vomiting Denies pain Objective Vital Signs: Date Time Temp Pulse Resp B/P Pulse Ox O2 Delivery O2 Flow Rate FiO2 08/24/16 07:15 Room Air 08/24/16 06:56 36.6 80 18 122/74 98 Room Air 08/24/16 03:15 36.8 78 24 148/76 98 Room Air 08/24/16 00:34 Room Air 08/23/16 22:45 36.7 77 20 155/80 98 Room Air 08/23/16 16:20 Room Air 08/23/16 14:59 36.9 72 19 151/69 97 Room Air 08/23/16 13:04 74 136/74 99 Room Air 08/23/16 13:04 99 Room Air 08/23/16 12:50 84 08/23/16 12:49 76 20 143/81 99 Room Air Abdomen: non distended, soft, + tenderness (continues to improve) Laboratory Results: Results Past 24 Hours Test 08/23/16 12:03 08/23/16 18:07 08/24/16 05:28 08/24/16 08:00 Range/Units Bedside Glucose 124 110 103 70-90 mg/dl White Blood Count 11.03 4.8-10.8 K/uL Red Blood Count 3.79 4.2-5.4 M/uL Hemoglobin 12.3 12.0-16.0 g/dL Hematocrit 36.5 37-47 % Mean Corpuscular Volume 96.3 80-100 fL Mean Corpuscular Hemoglobin 32.5 25-34 pg Mean Corpuscular Hemoglobin Concent 33.7 32-36 g/dl RDW Standard Deviation 46.4 36.4-46.3 fL RDW Coefficient of Variation 13.3 11.5-14.5 % Platelet Count 255 130-400 K/uL Mean Platelet Volume 9.7 7.4-10.4 fL Sodium Level 140 136-145 mmol/L Potassium Level 3.2 3.5-5.1 mmol/L Chloride Level 108 98-107 mmol/L Carbon Dioxide Level 22 21-32 mmol/L Anion Gap 10.0 3-11 mmol/L Blood Urea Nitrogen 8 7-18 mg/dl Creatinine 0.39 0.60-1.20 mg/dl Est Creatinine Clear Calc Drug Dose 89.7 ml/min Estimated GFR () 108.7 Estimated GFR (Non- 93.8 BUN/Creatinine Ratio 19.7 10-20 Random Glucose 108 70-99 mg/dl Calcium Level 7.7 8.5-10.1 mg/dl Magnesium Level 2.0 1.8-2.4 mg/dl Assessment & Plan Less tenderness Cecal diverticulitis resolving wit conservative measures Agree with slow diet advancement
--- NOTE | 2016-08-24 14:51 | DIAGNOSTIC IMAGING REPORT ---
CHEST ONE VIEW PORTABLE HISTORY: shortness of breath COMPARISON: Chest 08/23/2016. FINDINGS: No pneumothorax. Trace bilateral pleural effusions, unchanged. Mild diffuse residual thickening is again noted. The heart is stable in size. Left basilar linear densities remain unchanged. No new focal lung consolidations. IMPRESSION: 1. Trace bilateral pleural effusions, unchanged. 2. No change in the diffuse interstitial thickening suggesting chronic interstitial lung disease. 3. Left basilar densities favor atelectasis. This is also unchanged. Electronically signed by: Dakotah Walker M.D. 08/24/2016 2:50 PM Dictated Date/Time: 08/24/2016 2:49 PM
[2016-08-24 16:00] VITALS: BP 145/77; PULSE 73; TEMP 36.9; O2SAT 97
--- NOTE | 2016-08-24 19:55 | Progress Note ---
Internal Med Progress Note Date of Service: August 24, 2016. Provider Documentation: SUBJECTIVE: abdominal pain has improved tolerating clear diet well no nausea no fever or chills OBJECTIVE: Vital Signs-as noted below Exam: General-elderly female , pleasant ,no sign of distress Lungs-CTA Heart-regular S1/s2 Abdomen-+ RLQ tenderness Extremities-no rash or deformity Neuro-AAO x3, no focal deficit Lab data as noted below. ASSESSMENT & PLAN: ACUTE CECAL DIVERTICULITIS slow improvement -presented with rt lower quadrant pain Ct abdomen /pelvis : 3.3 cm diverticulum in the anterior wall of the cecum , moderate circumferential wall thickening of the wall of the cecum with adjacent infiltration -cecal diverticulitis -with microperforation causing minimum pneumobilia /equivocal trace pneumoperitoneum -no evidence of sepsis -appreciate input from Surgery and GI -no indication for surgical intervention pt should recover with conservative approach -on IV abx -on Ciprofloxacin /Flagyl -can be changed to PO prior discharged -clinically improving -Diet advanced to full liquid in AM , cont slow advancement as tolerated , IVF D/clement -will need 2 total weeks of ABx on discharge -out pt colonoscopy in 6 weeks after resolution of acute infection -update given to Pt's Family -Nephew Francis and Sister GUTIÉRREZ : family noticed pt is having more labored breathing than usual with ambulation -no hypoxia Cxray mild pleural effusion -unchanged form prior _IVF D/clement possible cause of GUTIÉRREZ due to deconditioning -pt is asked to be OOB to chair as tolerated PT/OT eval DVT PROPHYLAXIS sub q Lovenox OOB as tolerated DISPOSITION lives at home with her sister was independent on her ADL's , uses walker PT/OT eval appreciated , recommends rehab referral made to [facility] as per JORGE A sadler recommendation Medicine follow up with Dr Joe Drake will need GI follow up in [address] Stevenson for out patient colonoscopy Vital Signs: Date Time Temp Pulse Resp B/P Pulse Ox O2 Delivery O2 Flow Rate FiO2 08/24/16 16:00 36.9 73 16 145/77 97 Room Air 08/24/16 15:40 Room Air 08/24/16 07:15 Room Air 08/24/16 06:56 36.6 80 18 122/74 98 Room Air 08/24/16 03:15 36.8 78 24 148/76 98 Room Air 08/24/16 00:34 Room Air 08/23/16 22:45 36.7 77 20 155/80 98 Room Air Lab Results: Results Past 24 Hours Test 08/24/16 05:28 08/24/16 08:00 08/24/16 12:05 08/24/16 17:37 Range/Units White Blood Count 11.03 4.8-10.8 K/uL Red Blood Count 3.79 4.2-5.4 M/uL Hemoglobin 12.3 12.0-16.0 g/dL Hematocrit 36.5 37-47 % Mean Corpuscular Volume 96.3 80-100 fL Mean Corpuscular Hemoglobin 32.5 25-34 pg Mean Corpuscular Hemoglobin Concent 33.7 32-36 g/dl RDW Standard Deviation 46.4 36.4-46.3 fL RDW Coefficient of Variation 13.3 11.5-14.5 % Platelet Count 255 130-400 K/uL Mean Platelet Volume 9.7 7.4-10.4 fL Sodium Level 140 136-145 mmol/L Potassium Level 3.2 3.5-5.1 mmol/L Chloride Level 108 98-107 mmol/L Carbon Dioxide Level 22 21-32 mmol/L Anion Gap 10.0 3-11 mmol/L Blood Urea Nitrogen 8 7-18 mg/dl Creatinine 0.39 0.60-1.20 mg/dl Est Creatinine Clear Calc Drug Dose 89.7 ml/min Estimated GFR () 108.7 Estimated GFR (Non- 93.8 BUN/Creatinine Ratio 19.7 10-20 Random Glucose 108 70-99 mg/dl Calcium Level 7.7 8.5-10.1 mg/dl Magnesium Level 2.0 1.8-2.4 mg/dl Bedside Glucose 103 131 122 70-90 mg/dl
[2016-08-24 22:45] VITALS: BP 166/71; PULSE 76; TEMP 36.9; O2SAT 98
[2016-08-24 23:15] VITALS: BP 146/84; PULSE 92
[2016-08-25] VITALS (7 sets, daily range): BP systolic 112–130; BP diastolic 69–78; PULSE 67–93; TEMP 36.8–37; O2SAT 96–99
[2016-08-25 07:11] LABS: MEAN CELL VOLUME 95.6 fL (80-100); MEAN CORPUSCULAR HEMOGLOBIN 33.1 pg (25-34); MEAN CORPUSCULAR HGB CONC 34.6 g/dl (32-36); MEAN PLATELET VOLUME 9.7 fL (7.4-10.4); PLATELET COUNT 265 K/uL (130-400); RED BLOOD COUNT 3.66 M/uL (4.2-5.4)
--- NOTE | 2016-08-25 07:36 | Surgery Progress Note ---
Surgery Progress Note Date of Service August 25, 2016. Subjective + diet (tolerated full liquiid diet), No nausea, No vomiting Denies pain Objective Vital Signs: Date Time Temp Pulse Resp B/P Pulse Ox O2 Delivery O2 Flow Rate FiO2 08/25/16 07:00 36.8 86 16 114/74 96 Room Air 08/24/16 23:15 92 146/84 08/24/16 23:15 Room Air 08/24/16 22:45 36.9 76 16 166/71 98 Room Air 08/24/16 16:00 36.9 73 16 145/77 97 Room Air 08/24/16 15:40 Room Air Abdomen: normal bowel sounds, + distended, + tenderness (RLQ unchanged) Laboratory Results: Results Past 24 Hours Test 08/24/16 08:00 08/24/16 12:05 08/24/16 17:37 08/24/16 20:50 Range/Units Bedside Glucose 103 131 122 175 70-90 mg/dl Test 08/25/16 06:45 Range/Units White Blood Count 7.60 4.8-10.8 K/uL Red Blood Count 3.66 4.2-5.4 M/uL Hemoglobin 12.1 12.0-16.0 g/dL Hematocrit 35.0 37-47 % Mean Corpuscular Volume 95.6 80-100 fL Mean Corpuscular Hemoglobin 33.1 25-34 pg Mean Corpuscular Hemoglobin Concent 34.6 32-36 g/dl RDW Standard Deviation 46.0 36.4-46.3 fL RDW Coefficient of Variation 13.2 11.5-14.5 % Platelet Count 265 130-400 K/uL Mean Platelet Volume 9.7 7.4-10.4 fL Assessment & Plan Tenderness the same today Cecal diverticulitis WBC normal and tolerating diet but tenderness persists Recheck CT scan today
[2016-08-25 07:44] LABS: CALCIUM 7.8 mg/dl (8.5-10.1); CREATININE 0.35 mg/dl (0.60-1.20); POTASSIUM 2.9 mmol/L (3.5-5.1)
[2016-08-25] MEDS ORDERED: POTASSIUM CHLORIDE 20 MEQ TABCR PO ONE (08:00)
[2016-08-25] MEDS: ENOXAPARIN 30 MG/0.3 ML SYR SQ SCH (08:32)
[2016-08-25] MEDS: ASPIRIN 81 MG ECTAB PO SCH (08:33)
[2016-08-25] MEDS: ATORVASTATIN 20 MG TAB PO SCH (08:33)
[2016-08-25] MEDS: METRONIDAZOLE / NSS 500 MG in PREMIXED NSS 100 ML IV SCH ×3 (08:36→23:37)
[2016-08-25] MEDS: INSULIN ASPART 100 UNITS/ML 3 ML PEN SC SCH ×4 (08:37→21:00)
[2016-08-25] MEDS: DILTIAZEM HCL (TIAzac) 180 MG CAPCR PO SCH (08:55)
[2016-08-25] MEDS: CIPROFLOXACIN / D5W 400 MG in PREMIXED IN D5W 200 ML IV SCH ×2 (09:47→21:26)
[2016-08-25] MEDS ORDERED: OPTIRAY 320 IV PRN (12:15)
--- NOTE | 2016-08-25 13:21 | DIAGNOSTIC IMAGING REPORT ---
CT OF THE ABDOMEN AND PELVIS WITH CONTRAST CLINICAL HISTORY: Cecal diverticulitis with continuing tenderness, reevaluate COMPARISON STUDY: CT of the abdomen and pelvis August 21, 2016. TECHNIQUE: Following IV administration of 94 mL of Optiray-320, axial images of the abdomen and pelvis were obtained from the lung bases to the proximal femurs. Images were reviewed in the axial, sagittal, and coronal planes. IV contrast was administered without complication. Oral contrast was administered. CT DOSE: 991.74 mGycm FINDINGS: Visualized portions of the the lower chest demonstrate subpleural reticulation with possible early honeycombing. There is no pneumatosis, free air or portal venous gas. The liver, spleen, adrenal glands and pancreas are unremarkable. There are gallstones within the gallbladder. There are multiple subcentimeter bilateral renal lesions. These are too small to characterize but likely reflect cysts. There is known for a bowel obstruction. A 2.6 cm outpouching arising from the anterior aspect of the cecum is again noted. This was shown on prior exam. This contains gas and oral contrast. Wall thickening of the cecum has improved. There is a small amount of fluid within the pelvis with possible peritoneal thickening. There is no rim-enhancing fluid collection. The structures are unremarkable. There is no evidence for a bowel obstruction. Mild small bowel dilatation is noted. This could reflect an ileus. IMPRESSION: 1. Persistent 2.6 cm outpouching arising from the right anterior aspect of the cecum which was shown on prior CT. This contains gas and oral contrast. This could reflect a large cecal diverticulum or contained perforation in the setting of diverticulitis. Interval improvement in cecal wall thickening since prior exam. Normal appendix not identified although acute appendicitis is considered unlikely. 2. Small amount of pelvic ascites with peritoneal thickening. No drainable abscess. 3. Mild small bowel dilatation without convincing evidence for a bowel obstruction. 4. Cholelithiasis. 5. Interval development of mild infiltration adjacent to the distal stomach and duodenum, a nonspecific finding. Electronically signed by: Swapnil Shaw M.D. 08/25/2016 1:20 PM Dictated Date/Time: 08/25/2016 1:04 PM
--- NOTE | 2016-08-25 14:23 | Progress Note ---
Medicine Progress Note Date & Time of Visit: August 25, 2016 at 14:02. Subjective Pt was see and examined Lying in bed with no distress Pt said that her abdominal pain feels much better she said that she had a normal bowel movement and tolerated her diet very well denies any fever, palpitation, dizziness and sob. Objective Last 8 Hrs Date Time Temp Pulse Resp B/P Pulse Ox O2 Delivery O2 Flow Rate FiO2 08/25/16 12:30 93 98 08/25/16 08:30 97 Room Air 08/25/16 08:14 36.8 08/25/16 07:45 67 15 112/78 97 Room Air 08/25/16 07:10 Room Air 08/25/16 07:00 36.8 86 16 114/74 96 Room Air Physical Exam: General- No acute distress Head- atraumatic Eyes- PERRL, EOMI ENT- oropharynx clear Neck- supple, no JVD, Lungs-No wheezing, no crackles Heart- regular rhythm; no murmur Abdomen- normal bowel sounds, soft, +tenderness RLQ Extremities- no pretibial edema, no calf tenderness Neuro- alert, oriented x 3; PERRL, EOMI; no facial palsy Skin- warm & dry Laboratory Results: Last 24 Hours Test 08/24/16 17:37 08/24/16 20:50 08/25/16 06:45 08/25/16 08:05 Bedside Glucose 122 mg/dl 175 mg/dl 128 mg/dl White Blood Count 7.60 K/uL Red Blood Count 3.66 M/uL Hemoglobin 12.1 g/dL Hematocrit 35.0 % Mean Corpuscular Volume 95.6 fL Mean Corpuscular Hemoglobin 33.1 pg Mean Corpuscular Hemoglobin Concent 34.6 g/dl RDW Standard Deviation 46.0 fL RDW Coefficient of Variation 13.2 % Platelet Count 265 K/uL Mean Platelet Volume 9.7 fL Sodium Level 141 mmol/L Potassium Level 2.9 mmol/L Chloride Level 109 mmol/L Carbon Dioxide Level 24 mmol/L Anion Gap 8.0 mmol/L Blood Urea Nitrogen 5 mg/dl Creatinine 0.35 mg/dl Est Creatinine Clear Calc Drug Dose 100.0 ml/min Estimated GFR () 112.6 Estimated GFR (Non- 97.2 BUN/Creatinine Ratio 14.0 Random Glucose 132 mg/dl Calcium Level 7.8 mg/dl Magnesium Level 2.0 mg/dl Assessment & Plan ACUTE CECAL DIVERTICULITIS -presented with rt lower quadrant pain -Ct abdomen /pelvis on admission showed 3.3 cm diverticulum in the anterior wall of the cecum, moderate circumferential wall thickening of the wall of the cecum with adjacent infiltration -cecal diverticulitis with microperforation causing minimum pneumobilia /equivocal trace pneumoperitoneum -no evidence of sepsis -Surgery on board- Continue conservative management - Continue IV abx with Ciprofloxacin /Flagyl - Repeat CT abdomen today showed Persistent 2.6 cm outpouching arising from the right anterior aspect of the cecum which was shown on prior CT. -clinically improving -Tolerated diet -will continue Abx for a total of 2 weeks -Will need outpatient colonoscopy in 6 weeks after resolution of acute infection HYPOKALEMIA K 2.9 K replaced continue monitor DYSPNEA -family noticed pt is having more labored breathing than usual with ambulation -no hypoxia -Cxray mild pleural effusion -unchanged form prior -PT/OT eval DVT PROPHYLAXIS subq Lovenox DISPOSITION lives at home with her sister PT/OT eval appreciated , recommends rehab referral made to [facility] as per JORGE A sadler recommendation Medicine follow up with Dr Joe Drake will need GI follow up in [address] Stevenson for outpatient colonoscopy Consultants: General surgery Current Inpatient Medications: Current Inpatient Medications Medications (Trade) Dose Ordered Sig/Manuel Route Start Time Stop Time Status Last Admin Dose Admin Enoxaparin Sodium (Lovenox Inj) 30 mg DAILY SQ 08/21/16 09:00 09/20/16 08:59 Future hold 08/25/16 08:32 30 MG Acetaminophen (Tylenol Tab) 650 mg Q4H PRN PO 08/21/16 06:15 09/20/16 06:14 Glucose (Glucose 40% Gel) 15-30 GRAMS 15 GRAMS... UD PRN PO 08/21/16 06:15 09/20/16 06:14 Glucose (Glucose Chew Tab) 4-8 Tablets 4 Tabl... UD PRN PO 08/21/16 06:15 09/20/16 06:14 Dextrose (Dextrose 50% 50ML Syringe) 25-50ML OF 50% DW IV FOR... UD PRN IV 08/21/16 06:15 09/20/16 06:14 Glucagon 1 mg 1 mg UD PRN SQ 08/21/16 06:15 09/20/16 06:14 Metronidazole/Prmx (Flagyl / Nss/ Premixed Nss) 100 ml @ 100 mls/hr Q8H IV 08/21/16 08:00 08/31/16 07:59 08/25/16 08:36 100 MLS/HR Ondansetron HCl (Zofran Inj) 4 mg Q6H PRN IV 08/21/16 06:15 09/20/16 06:14 Tramadol HCl (Ultram Tab) 25 mg Q6H PRN PO 08/21/16 06:15 09/20/16 06:14 08/21/16 20:35 25 MG Ketorolac Tromethamine (Toradol Inj) 15 mg Q6H PRN IV. 08/21/16 06:15 08/26/16 06:14 08/22/16 09:28 15 MG Morphine Sulfate (MoRPHine SULFATE INJ) 2 mg Q3H PRN IV 08/21/16 06:15 09/04/16 06:14 Aspirin (Ecotrin Tab) 81 mg DAILY PO 08/21/16 09:00 09/20/16 08:59 Future hold 08/25/16 08:33 81 MG Atorvastatin Calcium (Lipitor Tab) 20 mg DAILY PO 08/21/16 09:00 09/20/16 08:59 Future hold 08/25/16 08:33 20 MG Diltiazem HCl 180 mg 180 mg DAILY PO 08/21/16 09:00 09/20/16 08:59 Future hold 08/25/16 08:55 180 MG Ciprofloxacin/ Dextrose/Prmx (Cipro / D5w/ Premixed D5W) 200 ml @ 100 mls/hr Q12@1000,2200 IV 08/23/16 11:00 09/02/16 09:59 08/25/16 09:47 100 MLS/HR Insulin Aspart (novoLOG ASPART) SLIDING SCALE If C... ACHS SC 08/24/16 08:00 09/23/16 07:59 Polyethylene (Miralax Powder Packet) 17 gm DAILY PRN PO 08/24/16 09:00 09/23/16 08:59 Ioversol (Optiray 320) 125 ml UD PRN IV 08/25/16 12:15 08/29/16 12:14
[2016-08-26] VITALS (7 sets, daily range): BP systolic 113–143; BP diastolic 65–77; PULSE 76–97; TEMP 36.5–37; O2SAT 97–99
[2016-08-26] MEDS: ATORVASTATIN 20 MG TAB PO SCH (07:15)
[2016-08-26] MEDS: METRONIDAZOLE / NSS 500 MG in PREMIXED NSS 100 ML IV SCH ×2 (07:15→15:36)
[2016-08-26] MEDS: ASPIRIN 81 MG ECTAB PO SCH (07:15)
[2016-08-26] MEDS: ENOXAPARIN 30 MG/0.3 ML SYR SQ SCH (07:16)
[2016-08-26] MEDS: DILTIAZEM HCL (TIAzac) 180 MG CAPCR PO SCH (07:16)
[2016-08-26] MEDS: INSULIN ASPART 100 UNITS/ML 3 ML PEN SC SCH ×4 (08:00→21:18)
[2016-08-26 08:42] LABS: HEMATOCRIT 35.4 % (37-47); MEAN CELL VOLUME 96.5 fL (80-100); MEAN CORPUSCULAR HEMOGLOBIN 32.7 pg (25-34); MEAN CORPUSCULAR HGB CONC 33.9 g/dl (32-36); MEAN PLATELET VOLUME 9.5 fL (7.4-10.4); PLATELET COUNT 287 K/uL (130-400); RED BLOOD COUNT 3.67 M/uL (4.2-5.4); WHITE BLOOD COUNT 8.61 K/uL (4.8-10.8)
[2016-08-26 09:06] LABS: CREATININE 0.42 mg/dl (0.60-1.20); POTASSIUM 3.2 mmol/L (3.5-5.1)
--- NOTE | 2016-08-26 09:14 | Surgery Progress Note ---
Surgery Progress Note Date of Service August 26, 2016. Subjective Post OP Day: HD #5 + bowel movement, + diet (full liquids), + feeling well, + flatus, + pain controlled, No SOB, No ambulating (with assistance and walker), No chest pain, No complaints, No nausea, No vomiting Objective Vital Signs: Date Time Temp Pulse Resp B/P Pulse Ox O2 Delivery O2 Flow Rate FiO2 08/26/16 08:00 99 Room Air 08/26/16 06:57 36.8 82 16 125/66 99 Room Air 08/26/16 00:00 Room Air 08/25/16 22:52 36.8 68 16 130/69 97 Room Air 08/25/16 16:30 Room Air 08/25/16 15:16 37.0 67 16 122/69 99 Room Air 08/25/16 12:30 93 98 General Appearance: WD/WN, no apparent distress Head: normocephalic, atraumatic Neck: trachea midline Respiratory/Chest: lungs clear, normal breath sounds, no respiratory distress, no accessory muscle use Cardiovascular: regular rate, rhythm, no murmur Abdomen: non distended, soft, + tenderness (RLQ however vastly improved compared to yesterday, no rigidity, guarding or rebound) Incision(s): clean, dry, intact Laboratory Results: Results Past 24 Hours Test 08/25/16 12:19 08/25/16 17:18 08/25/16 20:53 08/26/16 07:58 Range/Units Bedside Glucose 173 132 156 132 70-90 mg/dl Test 08/26/16 08:33 Range/Units White Blood Count 8.61 4.8-10.8 K/uL Red Blood Count 3.67 4.2-5.4 M/uL Hemoglobin 12.0 12.0-16.0 g/dL Hematocrit 35.4 37-47 % Mean Corpuscular Volume 96.5 80-100 fL Mean Corpuscular Hemoglobin 32.7 25-34 pg Mean Corpuscular Hemoglobin Concent 33.9 32-36 g/dl RDW Standard Deviation 47.8 36.4-46.3 fL RDW Coefficient of Variation 13.5 11.5-14.5 % Platelet Count 287 130-400 K/uL Mean Platelet Volume 9.5 7.4-10.4 fL Sodium Level 139 136-145 mmol/L Potassium Level 3.2 3.5-5.1 mmol/L Chloride Level 106 98-107 mmol/L Carbon Dioxide Level 25 21-32 mmol/L Anion Gap 8.0 3-11 mmol/L Blood Urea Nitrogen 5 7-18 mg/dl Creatinine 0.42 0.60-1.20 mg/dl Est Creatinine Clear Calc Drug Dose 83.3 ml/min Estimated GFR () 106.1 Estimated GFR (Non- 91.5 BUN/Creatinine Ratio 11.0 10-20 Random Glucose 131 70-99 mg/dl Magnesium Level 2.0 1.8-2.4 mg/dl Diagnostic Interpretation: CT OF THE ABDOMEN AND PELVIS WITH CONTRAST CLINICAL HISTORY: Cecal diverticulitis with continuing tenderness, reevaluate COMPARISON STUDY: CT of the abdomen and pelvis August 21, 2016. TECHNIQUE: Following IV administration of 94 mL of Optiray-320, axial images of the abdomen and pelvis were obtained from the lung bases to the proximal femurs. Images were reviewed in the axial, sagittal, and coronal planes. IV contrast was administered without complication. Oral contrast was administered. CT DOSE: 991.74 mGycm FINDINGS: Visualized portions of the the lower chest demonstrate subpleural reticulation with possible early honeycombing. There is no pneumatosis, free air or portal venous gas. The liver, spleen, adrenal glands and pancreas are unremarkable. There are gallstones within the gallbladder. There are multiple subcentimeter bilateral renal lesions. These are too small to characterize but likely reflect cysts. There is known for a bowel obstruction. A 2.6 cm outpouching arising from the anterior aspect of the cecum is again noted. This was shown on prior exam. This contains gas and oral contrast. Wall thickening of the cecum has improved. There is a small amount of fluid within the pelvis with possible peritoneal thickening. There is no rim-enhancing fluid collection. The structures are unremarkable. There is no evidence for a bowel obstruction. Mild small bowel dilatation is noted. This could reflect an ileus. IMPRESSION: 1. Persistent 2.6 cm outpouching arising from the right anterior aspect of the cecum which was shown on prior CT. This contains gas and oral contrast. This could reflect a large cecal diverticulum or contained perforation in the setting of diverticulitis. Interval improvement in cecal wall thickening since prior exam. Normal appendix not identified although acute appendicitis is considered unlikely. 2. Small amount of pelvic ascites with peritoneal thickening. No drainable abscess. 3. Mild small bowel dilatation without convincing evidence for a bowel obstruction. 4. Cholelithiasis. 5. Interval development of mild infiltration adjacent to the distal stomach and duodenum, a nonspecific finding. Assessment & Plan Cecal Diverticulitis vs Contained Cecal Microperforation - vitals stable - no leukocytosis - repeat CT scan yesterday showed persistent 2.6 cm outpouching of anterior cecum and improved cecal wall thickening compared to prior - abdominal exam vastly improved today with minimal TTP in RLQ, no guarding or rebound today - + bowel function Plan: Advance diet to regular diet as tolerated Continue IV antibiotics Continue pain management prn Continue current management by hospitalist service She will need outpatient colonoscopy in about [address] Rell Kang has seen and examined patient, agrees with above
[2016-08-26 09:25] LABS: CALCIUM 8.4 mg/dl (8.5-10.1)
[2016-08-26] MEDS: CIPROFLOXACIN / D5W 400 MG in PREMIXED IN D5W 200 ML IV SCH ×2 (09:37→21:22)
[2016-08-26] MEDS ORDERED: POTASSIUM CHLORIDE 20 MEQ TABCR PO ONE (11:00)
--- NOTE | 2016-08-26 11:23 | Progress Note ---
Medicine Progress Note Date & Time of Visit: August 26, 2016 at 11:16. Subjective Pt was seen and examined Sitting in chair very comfortable with no distress Pt said that she is feeling much better today she said that her abdominal pain improved significantly denies any chest pain, palpitation, dizziness and sob Objective Last 8 Hrs Date Time Temp Pulse Resp B/P Pulse Ox O2 Delivery O2 Flow Rate FiO2 08/26/16 08:00 99 Room Air 08/26/16 06:57 36.8 82 16 125/66 99 Room Air Physical Exam: General- No acute distress Head- atraumatic Eyes- PERRL, EOMI ENT- oropharynx clear Neck- supple, no JVD, Lungs-No wheezing, no crackles Heart- regular rhythm; no murmur Abdomen- normal bowel sounds, soft, +tenderness RLQ with deep palpation ( significantly improved) Extremities- no pretibial edema, no calf tenderness Neuro- alert, oriented x 3; PERRL, EOMI; no facial palsy Skin- warm & dry Laboratory Results: Last 24 Hours Test 08/25/16 12:19 08/25/16 17:18 08/25/16 20:53 08/26/16 07:58 Bedside Glucose 173 mg/dl 132 mg/dl 156 mg/dl 132 mg/dl Test 08/26/16 08:33 White Blood Count 8.61 K/uL Red Blood Count 3.67 M/uL Hemoglobin 12.0 g/dL Hematocrit 35.4 % Mean Corpuscular Volume 96.5 fL Mean Corpuscular Hemoglobin 32.7 pg Mean Corpuscular Hemoglobin Concent 33.9 g/dl RDW Standard Deviation 47.8 fL RDW Coefficient of Variation 13.5 % Platelet Count 287 K/uL Mean Platelet Volume 9.5 fL Sodium Level 139 mmol/L Potassium Level 3.2 mmol/L Chloride Level 106 mmol/L Carbon Dioxide Level 25 mmol/L Anion Gap 8.0 mmol/L Blood Urea Nitrogen 5 mg/dl Creatinine 0.42 mg/dl Est Creatinine Clear Calc Drug Dose 83.3 ml/min Estimated GFR () 106.1 Estimated GFR (Non- 91.5 BUN/Creatinine Ratio 11.0 Random Glucose 131 mg/dl Calcium Level 8.4 mg/dl Magnesium Level 2.0 mg/dl Assessment & Plan ACUTE CECAL DIVERTICULITIS -presented with rt lower quadrant pain -Ct abdomen /pelvis on admission showed 3.3 cm diverticulum in the anterior wall of the cecum, moderate circumferential wall thickening of the wall of the cecum with adjacent infiltration -cecal diverticulitis with microperforation causing minimum pneumobilia /equivocal trace pneumoperitoneum -no evidence of sepsis -Surgery on board- Continue conservative management - Continue IV abx with Ciprofloxacin /Flagyl - Repeat CT abdomen today showed Persistent 2.6 cm outpouching arising from the right anterior aspect of the cecum which was shown on prior CT. -clinically improves significantly -Tolerated full liquid diet - Discussed case with Brigitte WILKERSON - Diet increased to regular - will monitor today, if tolerated diet, will discharge tomorrow to rehab -Continue Abx for a total of 2 weeks, will transition to PO abx -Will need outpatient colonoscopy in 6 weeks after resolution of acute infection HYPOKALEMIA K 3.2 K replaced continue monitor DYSPNEA -family noticed pt is having more labored breathing than usual with ambulation -no hypoxia -Cxray mild pleural effusion -unchanged form prior -PT/OT eval DVT PROPHYLAXIS subq Lovenox DISPOSITION lives at home with her sister PT/OT eval appreciated , recommends rehab referral made to [facility] as per JORGE A sadler recommendation Medicine follow up with Dr Joe Drake will need GI follow up in [address] Stevenson for outpatient colonoscopy Consultants: General surgery Current Inpatient Medications: Current Inpatient Medications Medications (Trade) Dose Ordered Sig/Manuel Route Start Time Stop Time Status Last Admin Dose Admin Enoxaparin Sodium (Lovenox Inj) 30 mg DAILY SQ 08/21/16 09:00 09/20/16 08:59 Future hold 08/26/16 07:16 30 MG Acetaminophen (Tylenol Tab) 650 mg Q4H PRN PO 08/21/16 06:15 09/20/16 06:14 Glucose (Glucose 40% Gel) 15-30 GRAMS 15 GRAMS... UD PRN PO 08/21/16 06:15 09/20/16 06:14 Glucose (Glucose Chew Tab) 4-8 Tablets 4 Tabl... UD PRN PO 08/21/16 06:15 09/20/16 06:14 Dextrose (Dextrose 50% 50ML Syringe) 25-50ML OF 50% DW IV FOR... UD PRN IV 08/21/16 06:15 09/20/16 06:14 Glucagon 1 mg 1 mg UD PRN SQ 08/21/16 06:15 09/20/16 06:14 Metronidazole/Prmx (Flagyl / Nss/ Premixed Nss) 100 ml @ 100 mls/hr Q8H IV 08/21/16 08:00 08/31/16 07:59 08/26/16 07:15 100 MLS/HR Ondansetron HCl (Zofran Inj) 4 mg Q6H PRN IV 08/21/16 06:15 09/20/16 06:14 Tramadol HCl (Ultram Tab) 25 mg Q6H PRN PO 08/21/16 06:15 09/20/16 06:14 08/21/16 20:35 25 MG Morphine Sulfate (MoRPHine SULFATE INJ) 2 mg Q3H PRN IV 08/21/16 06:15 09/04/16 06:14 Aspirin (Ecotrin Tab) 81 mg DAILY PO 08/21/16 09:00 09/20/16 08:59 Future hold 08/26/16 07:15 81 MG Atorvastatin Calcium (Lipitor Tab) 20 mg DAILY PO 08/21/16 09:00 09/20/16 08:59 Future hold 08/26/16 07:15 20 MG Diltiazem HCl 180 mg 180 mg DAILY PO 08/21/16 09:00 09/20/16 08:59 Future hold 08/26/16 07:16 180 MG Ciprofloxacin/ Dextrose/Prmx (Cipro / D5w/ Premixed D5W) 200 ml @ 100 mls/hr Q12@1000,2200 IV 08/23/16 11:00 09/02/16 09:59 08/26/16 09:37 100 MLS/HR Insulin Aspart (novoLOG ASPART) SLIDING SCALE If C... ACHS SC 08/24/16 08:00 09/23/16 07:59 Polyethylene (Miralax Powder Packet) 17 gm DAILY PRN PO 08/24/16 09:00 09/23/16 08:59 Ioversol (Optiray 320) 125 ml UD PRN IV 08/25/16 12:15 08/29/16 12:14
--- NOTE | 2016-08-26 19:54 | DIAGNOSTIC IMAGING REPORT ---
CHEST ONE VIEW PORTABLE CLINICAL HISTORY: sob dyspnea. Chest pain. COMPARISON STUDY: 08/24/2016 FINDINGS: Improved exam with pulmonary vasculature are now normal in mild residual left basilar atelectatic/interstitial change. No acute infiltrate. Time. IMPRESSION: Improved exam with the lungs now essentially clear. Minimal residual chronic atelectatic change left base. Electronically signed by: James Reyes M.D. 08/26/2016 7:52 PM Dictated Date/Time: 08/26/2016 7:51 PM
[2016-08-27] MEDS: METRONIDAZOLE / NSS 500 MG in PREMIXED NSS 100 ML IV SCH ×2 (00:04→08:31)
[2016-08-27 06:32] LABS: BUN/CREATININE RATIO 14.8 (10-20); CALCIUM 8.4 mg/dl (8.5-10.1); CREATININE 0.4 mg/dl (0.60-1.20); POTASSIUM 3.8 mmol/L (3.5-5.1)
--- NOTE | 2016-08-27 06:38 | Surgery Progress Note ---
Surgery Progress Note Date of Service August 27, 2016. Subjective + bowel movement, + diet, + flatus, No nausea, No vomiting Objective Vital Signs: Date Time Temp Pulse Resp B/P Pulse Ox O2 Delivery O2 Flow Rate FiO2 08/27/16 00:15 Room Air 08/26/16 22:55 36.5 76 12 126/70 97 Room Air 08/26/16 19:04 36.7 78 20 143/77 98 Room Air 08/26/16 16:55 98 08/26/16 15:34 37.0 97 16 113/65 97 Room Air 08/26/16 11:26 97 08/26/16 08:00 99 Room Air 08/26/16 06:57 36.8 82 16 125/66 99 Room Air Abdomen: normal bowel sounds, non distended, soft, + tenderness (Unchanged from yesterday) Laboratory Results: Results Past 24 Hours Test 08/26/16 07:58 08/26/16 08:33 08/26/16 12:11 08/26/16 16:42 Range/Units Bedside Glucose 132 122 152 70-90 mg/dl White Blood Count 8.61 4.8-10.8 K/uL Red Blood Count 3.67 4.2-5.4 M/uL Hemoglobin 12.0 12.0-16.0 g/dL Hematocrit 35.4 37-47 % Mean Corpuscular Volume 96.5 80-100 fL Mean Corpuscular Hemoglobin 32.7 25-34 pg Mean Corpuscular Hemoglobin Concent 33.9 32-36 g/dl RDW Standard Deviation 47.8 36.4-46.3 fL RDW Coefficient of Variation 13.5 11.5-14.5 % Platelet Count 287 130-400 K/uL Mean Platelet Volume 9.5 7.4-10.4 fL Sodium Level 139 136-145 mmol/L Potassium Level 3.2 3.5-5.1 mmol/L Chloride Level 106 98-107 mmol/L Carbon Dioxide Level 25 21-32 mmol/L Anion Gap 8.0 3-11 mmol/L Blood Urea Nitrogen 5 7-18 mg/dl Creatinine 0.42 0.60-1.20 mg/dl Est Creatinine Clear Calc Drug Dose 83.3 ml/min Estimated GFR () 106.1 Estimated GFR (Non- 91.5 BUN/Creatinine Ratio 11.0 10-20 Random Glucose 131 70-99 mg/dl Calcium Level 8.4 8.5-10.1 mg/dl Magnesium Level 2.0 1.8-2.4 mg/dl Test 08/26/16 20:34 08/27/16 05:11 Range/Units Bedside Glucose 200 70-90 mg/dl Sodium Level 139 136-145 mmol/L Potassium Level 3.8 3.5-5.1 mmol/L Chloride Level 105 98-107 mmol/L Carbon Dioxide Level 26 21-32 mmol/L Anion Gap 8.0 3-11 mmol/L Blood Urea Nitrogen 6 7-18 mg/dl Creatinine 0.40 0.60-1.20 mg/dl Est Creatinine Clear Calc Drug Dose 87.5 ml/min Estimated GFR () 107.8 Estimated GFR (Non- 93.0 BUN/Creatinine Ratio 14.8 10- Random Glucose 145 70-99 mg/dl Calcium Level 8.4 8.5-10.1 mg/dl Assessment & Plan Tenderness the same today Cecal diverticulitis WBC normal and tolerating Tenderness improving slowly Repeat CT again noted Tenderness the same today Cecal diverticulitis WBC normal and tolerating diet but tenderness persists Recheck CT scan today
[2016-08-27 07:26] VITALS: BP 146/80; PULSE 75; TEMP 36.7; O2SAT 99
[2016-08-27] MEDS: INSULIN ASPART 100 UNITS/ML 3 ML PEN SC SCH ×2 (08:31→12:42)
[2016-08-27] MEDS: ATORVASTATIN 20 MG TAB PO SCH (08:31)
[2016-08-27] MEDS: DILTIAZEM HCL (TIAzac) 180 MG CAPCR PO SCH (08:31)
[2016-08-27] MEDS: ASPIRIN 81 MG ECTAB PO SCH (08:31)
[2016-08-27] MEDS: ENOXAPARIN 30 MG/0.3 ML SYR SQ SCH (08:33)
[2016-08-27] MEDS: CIPROFLOXACIN / D5W 400 MG in PREMIXED IN D5W 200 ML IV SCH (10:13)
--- NOTE | 2016-08-27 12:23 | Progress Note ---
Medicine Progress Note Date & Time of Visit: August 27, 2016 at 12:15. Subjective Pt was seen and examined Lying in bed with no distress She said that she continues to have RLQ abdominal tenderness that is improved She tolerated regular diet she said that she had normal BM denies any chest pain, palpitation and sob Objective Last 8 Hrs Date Time Temp Pulse Resp B/P Pulse Ox O2 Delivery O2 Flow Rate FiO2 08/27/16 07:30 Room Air 08/27/16 07:26 36.7 75 16 146/80 99 Room Air Physical Exam: General- No acute distress Head- atraumatic Eyes- PERRL, EOMI ENT- oropharynx clear Neck- supple, no JVD, Lungs-No wheezing, no crackles Heart- regular rhythm; no murmur Abdomen- normal bowel sounds, soft, +tenderness RLQ with deep palpation ( significantly improved) Extremities- no pretibial edema, no calf tenderness Neuro- alert, oriented x 3; PERRL, EOMI; no facial palsy Skin- warm & dry Laboratory Results: Last 24 Hours Test 08/26/16 16:42 08/26/16 20:34 08/27/16 05:11 08/27/16 07:41 Bedside Glucose 152 mg/dl 200 mg/dl 131 mg/dl Sodium Level 139 mmol/L Potassium Level 3.8 mmol/L Chloride Level 105 mmol/L Carbon Dioxide Level 26 mmol/L Anion Gap 8.0 mmol/L Blood Urea Nitrogen 6 mg/dl Creatinine 0.40 mg/dl Est Creatinine Clear Calc Drug Dose 87.5 ml/min Estimated GFR () 107.8 Estimated GFR (Non- 93.0 BUN/Creatinine Ratio 14.8 Random Glucose 145 mg/dl Calcium Level 8.4 mg/dl Assessment & Plan ACUTE CECAL DIVERTICULITIS -presented with rt lower quadrant pain -Ct abdomen /pelvis on admission showed 3.3 cm diverticulum in the anterior wall of the cecum, moderate circumferential wall thickening of the wall of the cecum with adjacent infiltration -cecal diverticulitis with microperforation causing minimum pneumobilia /equivocal trace pneumoperitoneum -no evidence of sepsis -Surgery on board- Continue conservative management - Continue IV abx with Ciprofloxacin /Flagyl - Repeat CT abdomen today showed Persistent 2.6 cm outpouching arising from the right anterior aspect of the cecum which was shown on prior CT. -clinically improves significantly -Tolerated full liquid diet - Discussed case with Brigitte WILKERSON - Diet increased to regular - Tolerated regular diet - Discussed with Dr. Kang, the surgeon, that is fine with pt to go to rehab today - Continue Abx for a total of 2 weeks, will transition to PO abx - Will need outpatient colonoscopy in 6 weeks after resolution of acute infection HYPOKALEMIA K 3.8 today stable continue monitor DYSPNEA -family noticed pt is having more labored breathing than usual with ambulation -no hypoxia -Cxr mild pleural effusion -unchanged form prior -PT/OT eval DVT PROPHYLAXIS subq Lovenox DISPOSITION lives at home with her sister PT/OT eval appreciated , recommends rehab Medicine follow up with Dr Joe Drake Will discharge today to [facility] will need GI follow up in [address] Stevenson for outpatient colonoscopy Consultants: General surgery Gastro Current Inpatient Medications: Current Inpatient Medications Medications (Trade) Dose Ordered Sig/Manuel Route Start Time Stop Time Status Last Admin Dose Admin Enoxaparin Sodium (Lovenox Inj) 30 mg DAILY SQ 08/21/16 09:00 09/20/16 08:59 Future hold 08/27/16 08:33 30 MG Acetaminophen (Tylenol Tab) 650 mg Q4H PRN PO 08/21/16 06:15 09/20/16 06:14 Glucose (Glucose 40% Gel) 15-30 GRAMS 15 GRAMS... UD PRN PO 08/21/16 06:15 09/20/16 06:14 Glucose (Glucose Chew Tab) 4-8 Tablets 4 Tabl... UD PRN PO 08/21/16 06:15 09/20/16 06:14 Dextrose (Dextrose 50% 50ML Syringe) 25-50ML OF 50% DW IV FOR... UD PRN IV 08/21/16 06:15 09/20/16 06:14 Glucagon 1 mg 1 mg UD PRN SQ 08/21/16 06:15 09/20/16 06:14 Metronidazole/Prmx (Flagyl / Nss/ Premixed Nss) 100 ml @ 100 mls/hr Q8H IV 08/21/16 08:00 08/31/16 07:59 08/27/16 08:31 100 MLS/HR Ondansetron HCl (Zofran Inj) 4 mg Q6H PRN IV 08/21/16 06:15 09/20/16 06:14 Tramadol HCl (Ultram Tab) 25 mg Q6H PRN PO 08/21/16 06:15 09/20/16 06:14 08/21/16 20:35 25 MG Morphine Sulfate (MoRPHine SULFATE INJ) 2 mg Q3H PRN IV 08/21/16 06:15 09/04/16 06:14 Aspirin (Ecotrin Tab) 81 mg DAILY PO 08/21/16 09:00 09/20/16 08:59 Future hold 08/27/16 08:31 81 MG Atorvastatin Calcium (Lipitor Tab) 20 mg DAILY PO 08/21/16 09:00 09/20/16 08:59 Future hold 08/27/16 08:31 20 MG Diltiazem HCl 180 mg 180 mg DAILY PO 08/21/16 09:00 09/20/16 08:59 Future hold 08/27/16 08:31 180 MG Ciprofloxacin/ Dextrose/Prmx (Cipro / D5w/ Premixed D5W) 200 ml @ 100 mls/hr Q12@1000,2200 IV 08/23/16 11:00 09/02/16 09:59 08/27/16 10:13 100 MLS/HR Insulin Aspart (novoLOG ASPART) SLIDING SCALE If C... ACHS SC 08/24/16 08:00 09/23/16 07:59 08/26/16 21:18 1 UNITS Polyethylene (Miralax Powder Packet) 17 gm DAILY PRN PO 08/24/16 09:00 09/23/16 08:59 Ioversol (Optiray 320) 125 ml UD PRN IV 08/25/16 12:15 08/29/16 12:14
[2016-08-27] MEDS ORDERED: METR-162 PO (12:29)
[2016-08-27] MEDS ORDERED: CIPR-255 PO (12:29)
--- NOTE | 2016-08-27 12:38 | Discharge Instructions ---
Discharge Instructions Date of Service August 27, 2016. Admission Reason for Admission: Cecal Diverticulitis Discharge Discharge Diagnosis / Problem: ACUTE CECAL DIVERTICULITIS , HYPOKALEMIA, DYSPNEA Discharge Goals Goal(s): Decrease discomfort, Improve function, Improve disease control Activity Recommendations Activity Limitations: resume your previous activity (Increase activity gradually as tolerated) . Instructions / Follow-Up Instructions / Follow-Up Follow up appointment with your physician once you discharge from rehab You will need a a follow up with Gastro in [address] Zacarias for outpatient colonoscopy Complete antibiotic course with Metronidazole and Cipro Continue PT/OT Fall precaution Current Hospital Diet Patient's current hospital diet: Diabetes Type 2 Diet, Low Sodium Diet (2gm Na) Discharge Diet Recommended Diet: Low Sodium Diet (2gm Na), Diabetes Type 2 Diet Pending Studies Studies pending at discharge: no Medical Emergencies . Who to Call and When: Medical Emergencies: If at any time you feel your situation is an emergency, please call 911 immediately. . Non-Emergent Contact Non-Emergency issues call your: Primary Care Provider Call Non-Emergent contact if: you have a fever, your pain is worsening, your pain is concerning you, you have any medication questions . . "Provider Documentation" section prepared by Ajay Ferrari. . VTE Core Measure Inpt VTE Proph given/why not?: Enoxaparin (Lovenox)SQ
[2016-08-27 12:43] VITALS: BP 146/80; PULSE 75; TEMP 36.7; O2SAT 99
--- NOTE | 2016-08-30 18:37 | Discharge Summary ---
Discharge Summary Date of Service August 30, 2016. Discharge Summary Admission Date: August 21, 2016 at 05:41 Discharge Date: August 27, 2016 Discharge Disposition: [facility] facility Principal Diagnosis: ACUTE CECAL DIVERTICULITIS Secondary Diagnoses/Problems: ACUTE CECAL DIVERTICULITIS HYPOKALEMIA DYSPNEA Procedures: CT OF THE ABDOMEN AND PELVIS WITH CONTRAST CLINICAL HISTORY: Cecal diverticulitis with continuing tenderness, reevaluate COMPARISON STUDY: CT of the abdomen and pelvis August 21, 2016. TECHNIQUE: Following IV administration of 94 mL of Optiray-320, axial images of the abdomen and pelvis were obtained from the lung bases to the proximal femurs. Images were reviewed in the axial, sagittal, and coronal planes. IV contrast was administered without complication. Oral contrast was administered. CT DOSE: 991.74 mGycm FINDINGS: Visualized portions of the the lower chest demonstrate subpleural reticulation with possible early honeycombing. There is no pneumatosis, free air or portal venous gas. The liver, spleen, adrenal glands and pancreas are unremarkable. There are gallstones within the gallbladder. There are multiple subcentimeter bilateral renal lesions. These are too small to characterize but likely reflect cysts. There is known for a bowel obstruction. A 2.6 cm outpouching arising from the anterior aspect of the cecum is again noted. This was shown on prior exam. This contains gas and oral contrast. Wall thickening of the cecum has improved. There is a small amount of fluid within the pelvis with possible peritoneal thickening. There is no rim-enhancing fluid collection. The structures are unremarkable. There is no evidence for a bowel obstruction. Mild small bowel dilatation is noted. This could reflect an ileus. IMPRESSION: 1. Persistent 2.6 cm outpouching arising from the right anterior aspect of the cecum which was shown on prior CT. This contains gas and oral contrast. This could reflect a large cecal diverticulum or contained perforation in the setting of diverticulitis. Interval improvement in cecal wall thickening since prior exam. Normal appendix not identified although acute appendicitis is considered unlikely. 2. Small amount of pelvic ascites with peritoneal thickening. No drainable abscess. 3. Mild small bowel dilatation without convincing evidence for a bowel obstruction. 4. Cholelithiasis. 5. Interval development of mild infiltration adjacent to the distal stomach and duodenum, a nonspecific finding. Electronically signed by: Swapnil Shaw M.D. 08/25/2016 1:20 PM Dictated Date/Time: 08/25/2016 1:04 PM Consultations: General surgery Gastro Medication Reconciliation New Medications: Ciprofloxacin Hcl (Cipro) 500 Mg Tab 500 MG PO BID for 7 Days, #14 TAB Metronidazole (Flagyl) 500 Mg Tab 500 MG PO TID for 7 Days, #21 TAB Continued Medications: Alendronate Sodium (Fosamax) 70 Mg Tab 1 TAB PO WK for 28 Days, #4 TAB 3 Refills Aspirin (Aspirin Ec) 81 Mg Tab 81 MG PO DAILY Atorvastatin (Lipitor) 20 Mg Tab 20 MG PO DAILY, TAB Diltiazem Hcl Ext Rel (Tiazac) 180 Mg Capcr 180 MG PO DAILY, CAP Admission Information HPI (per Admitting provider): CHIEF COMPLAINT: Right-sided abdominal pain. HISTORY OF PRESENT ILLNESS: Medical history significant for hypertension, DM2, aortic stenosis, PSVT, hyperlipidemia, past tobacco abuse. Recent confinement in August 2015 for fall right ankle fracture, Few days history of loose stools, non-bloody. No recent antibiotics. Patient saw her PCP yesterday. Told to hold metformin temporarily. Last night, patient had mild achy right-sided abdominal pain, which woke her up this morning. No nausea, no vomiting. No fever, no chills. No unusual weight loss. At the Emergency Room CAT scan initial read showed marked wall thickening of the cecum with minimal adjacent stranding, focal colitis or cecal diverticulitis. Patient received Zosyn in the ER. Physical Exam (per Admitting): PHYSICAL EXAMINATION: VITAL SIGNS: Blood pressure was noted to be 167/79, later 150/60; pulse rate 80, RR 20, temperature 37, sats 98 on room air. GENERAL: Noted to be slightly uncomfortable, no respiratory distress. SKIN: Normal color. HEENT: [place] palpebral conjunctivae. Dry mucosa. NECK: No JVD. Supple. CHEST: Clear to auscultation. HEART: Systolic murmur. ABDOMEN: Right lower quadrant tenderness. EXTREMITIES: No edema. no tenderness NEUROLOGIC: No gross focality. Hospital Course ACUTE CECAL DIVERTICULITIS -presented with rt lower quadrant pain -Ct abdomen /pelvis on admission showed 3.3 cm diverticulum in the anterior wall of the cecum, moderate circumferential wall thickening of the wall of the cecum with adjacent infiltration -cecal diverticulitis with microperforation causing minimum pneumobilia /equivocal trace pneumoperitoneum -no evidence of sepsis -Surgery on board- Continue conservative management - Continue IV abx with Ciprofloxacin /Flagyl - Repeat CT abdomen today showed Persistent 2.6 cm outpouching arising from the right anterior aspect of the cecum which was shown on prior CT. -clinically improves significantly -Tolerated full liquid diet - Discussed case with Brigitte WILKERSON - Diet increased to regular - Tolerated regular diet - Discussed with Dr. Kang, the surgeon, that is fine with pt to go to rehab today - Continue Abx for a total of 2 weeks, will transition to PO abx - Will need outpatient colonoscopy in 6 weeks after resolution of acute infection HYPOKALEMIA K 3.8 today stable continue monitor DYSPNEA -family noticed pt is having more labored breathing than usual with ambulation -no hypoxia -Cxr mild pleural effusion -unchanged form prior -PT/OT eval DVT PROPHYLAXIS subq Lovenox DISPOSITION lives at home with her sister PT/OT eval appreciated , recommends rehab Medicine follow up with Dr Joe Drake Will discharge today to [facility] will need GI follow up in [address] Stevenson for outpatient colonoscopy Total time spent on discharge = 35 MINUTES This includes examination of the patient, discharge planning, medication reconciliation, and communication with other providers. Discharge Instructions Discharge Instructions Date of Service August 27, 2016. Admission Reason for Admission: Cecal Diverticulitis Discharge Discharge Diagnosis / Problem: ACUTE CECAL DIVERTICULITIS , HYPOKALEMIA, DYSPNEA Discharge Goals Goal(s): Decrease discomfort, Improve function, Improve disease control Activity Recommendations Activity Limitations: resume your previous activity (Increase activity gradually as tolerated) . Instructions / Follow-Up Instructions / Follow-Up Follow up appointment with your physician once you discharge from rehab You will need a a follow up with Gastro in [address] Zacarias for outpatient colonoscopy Complete antibiotic course with Metronidazole and Cipro Continue PT/OT Fall precaution Current Hospital Diet Patient's current hospital diet: Diabetes Type 2 Diet, Low Sodium Diet (2gm Na) Discharge Diet Recommended Diet: Low Sodium Diet (2gm Na), Diabetes Type 2 Diet Pending Studies Studies pending at discharge: no Medical Emergencies . Who to Call and When: Medical Emergencies: If at any time you feel your situation is an emergency, please call 911 immediately. . Non-Emergent Contact Non-Emergency issues call your: Primary Care Provider Call Non-Emergent contact if: you have a fever, your pain is worsening, your pain is concerning you, you have any medication questions . . "Provider Documentation" section prepared by Ajay Ferrari. Additional Copies To Bhupendra Bae Shane D., D.O.
== END 2016-08-27 13:52 | DRG 392 ==
LOC: ENRESERVTM → ENRESERVDT → EDBD 03:10 → C.EDA 03:11 → C.MSW 05:41 → EDBEDREQSVC 06:24
PROVIDERS: ADMIT Hospitalist; ATTEND Internal Medicine
DX: K57.20 Diverticulitis of large intestine with perforation and abscess without bleeding (principal); I47.1 Supraventricular tachycardia; J90 Pleural effusion, not elsewhere classified; I35.0 Nonrheumatic aortic (valve) stenosis; E11.9 Type 2 diabetes mellitus without complications; E87.6 Hypokalemia; E78.5 Hyperlipidemia, unspecified; I10 Essential (primary) hypertension; Z87.891 Personal history of nicotine dependence; Z86.73 Personal history of transient ischemic attack (TIA), and cerebral infarction without residual deficits

== ENCOUNTER → 2016-09-02 | Outpatient (CLI) | payer OTHER ==
[~2016-09-02] MED LIST changes: +CIPR-255 PO; -GLC/500 PO; +METR-162 PO
[2016-09-02 12:16] LABS: BASO % 0.2 %; BASO ABS # 0.02 K/uL (0-0.2); COMPLETE YES; HEMATOCRIT 37.1 % (37-47); IG% 0.7 %; LYMPH % 15.2 %; LYMPH ABS # 1.63 K/uL (1.2-3.4); MEAN CELL VOLUME 98.1 fL (80-100); MEAN CORPUSCULAR HEMOGLOBIN 32.3 pg (25-34); MEAN CORPUSCULAR HGB CONC 32.9 g/dl (32-36); MEAN PLATELET VOLUME 9.5 fL (7.4-10.4); MONO % 9.7 %; NEUT % 73.2 %; PLATELET COUNT 438 K/uL (130-400); RED BLOOD COUNT 3.78 M/uL (4.2-5.4); WHITE BLOOD COUNT 10.74 K/uL (4.8-10.8)
[2016-09-02 12:46] LABS: BLOOD UREA NITROGEN 10 mg/dl (7-18); BUN/CREATININE RATIO 18.8 (10-20); CALCIUM 8.5 mg/dl (8.5-10.1); CARBON DIOXIDE 28 mmol/L (21-32); CHLORIDE 106 mmol/L (98-107); CREATININE 0.54 mg/dl (0.60-1.20); GLUCOSE 127 mg/dl (70-99); POTASSIUM 3.9 mmol/L (3.5-5.1); SODIUM 140 mmol/L (136-145)
== END | disposition home or self-care (01) ==
LOC: C.LABCC 13:58
PROVIDERS: ATTEND Internal Medicine
DX: K57.92 Diverticulitis of intestine, part unspecified, without perforation or abscess without bleeding (principal)

== ENCOUNTER → 2016-09-04 | Outpatient (CLI) | payer OTHER ==
[2016-09-04 08:28] LABS: CHOLESTEROL/HDL RATIO 2.7
== END ==
LOC: C.LABCC 07:54
PROVIDERS: ATTEND Internal Medicine
DX: E78.5 Hyperlipidemia, unspecified (principal)

== ENCOUNTER → 2017-01-29 | Outpatient (CLI) | payer OTHER ==
[~2017-01-29] MED LIST changes: -METR-162 PO
[2017-01-29 08:31] LABS: BASO % 0.8 %; BASO ABS # 0.05 K/uL (0-0.2); COMPLETE YES; EOS % 4.1 %; HEMATOCRIT 36.5 % (37-47); IG% 0.2 %; LYMPH % 24.5 %; LYMPH ABS # 1.49 K/uL (1.2-3.4); MEAN CELL VOLUME 96.1 fL (80-100); MEAN CORPUSCULAR HEMOGLOBIN 33.2 pg (25-34); MEAN CORPUSCULAR HGB CONC 34.5 g/dl (32-36); MEAN PLATELET VOLUME 9.5 fL (7.4-10.4); NEUT % 57.4 %; PLATELET COUNT 268 K/uL (130-400); WHITE BLOOD COUNT 6.07 K/uL (4.8-10.8)
[2017-01-29 08:40] LABS: ALT/SGPT 18 U/L (12-78); AST/SGOT 13 U/L (15-37); BLOOD UREA NITROGEN 12 mg/dl (7-18); BUN/CREATININE RATIO 20.4 (10-20); CALCIUM 8.8 mg/dl (8.5-10.1); CARBON DIOXIDE 29 mmol/L (21-32); CHLORIDE 106 mmol/L (98-107); CHOLESTEROL 125 mg/dl (0-200); CREATININE 0.57 mg/dl (0.60-1.20); GLUCOSE 114 mg/dl (70-99); POTASSIUM 4.1 mmol/L (3.5-5.1); SODIUM 140 mmol/L (136-145); TRIGLYCERIDES 84 mg/dl (0-150); VERY LOW DENSITY LIPOPROT CALC 17 mg/dl
[2017-01-29 08:50] LABS: ALB/GLOB RATIO 0.8 (0.9-2); ALKALINE PHOSPHATASE 97 U/L (45-117); CHOLESTEROL/HDL RATIO 2.6; HDL CHOLESTEROL 48 mg/dl; LDL CHOLESTEROL CALCULATED 60 mg/dl; THYROID STIMULATING HORMONE 0.988 uIu/ml (0.300-4.500)
[2017-01-29 09:24] LABS: ESTIMATED AVERAGE GLUCOSE 128 mg/dl; HA1C FLAG Normal (Normal)
== END ==
LOC: C.LABCC 08:18
PROVIDERS: ATTEND Internal Medicine
DX: E87.1 Hypo-osmolality and hyponatremia (principal)

== ENCOUNTER → 2017-12-02 | Outpatient (CLI) | payer OTHER ==
[2017-12-02 09:20] LABS: HEMATOCRIT 37.1 % (37-47); HEMOGLOBIN 12.4 g/dL (12.0-16.0); MEAN CELL VOLUME 97.9 fL (80-100); MEAN CORPUSCULAR HEMOGLOBIN 32.7 pg (25-34); MEAN CORPUSCULAR HGB CONC 33.4 g/dl (32-36); MEAN PLATELET VOLUME 10.1 fL (7.4-10.4); PLATELET COUNT 265 K/uL (130-400); RED CELL DISTRIBUTION WIDTH CV 13.9 % (11.5-14.5); RED CELL DISTRIBUTION WIDTH SD 48.8 fL (36.4-46.3); WHITE BLOOD COUNT 6.97 K/uL (4.8-10.8)
[2017-12-02 09:32] LABS: ALBUMIN 3.2 gm/dl (3.4-5.0); ALKALINE PHOSPHATASE 74 U/L (45-117); ALT/SGPT 35 U/L (12-78); AST/SGOT 25 U/L (15-37); BLOOD UREA NITROGEN 15 mg/dl (7-18); CALCIUM 8.8 mg/dl (8.5-10.1); CARBON DIOXIDE 27 mmol/L (21-32); CHOLESTEROL 112 mg/dl (0-200); CREATININE 0.66 mg/dl (0.60-1.20); GLUCOSE 111 mg/dl (70-99); LDL CHOLESTEROL CALCULATED 52 mg/dl; POTASSIUM 4.1 mmol/L (3.5-5.1); SODIUM 141 mmol/L (136-145); TOTAL PROTEIN 6.9 gm/dl (6.4-8.2)
== END ==
LOC: C.LABCC 08:31
PROVIDERS: ATTEND Internal Medicine
DX: E11.9 Type 2 diabetes mellitus without complications (principal); I10 Essential (primary) hypertension; E78.5 Hyperlipidemia, unspecified; E55.9 Vitamin D deficiency, unspecified